=== PATIENT | female | born 2005 | race Caucasian/White ===

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

== ENCOUNTER 2024-10-20 12:09 | Emergency (ER) | payer MEDICARE, SELFPAY ==
[2024-10-20 13:01] VITALS: BP 126/85; PULSE 80; RESP 18; TEMP 36.5; O2SAT 99; BMI 36.9
--- NOTE | 2024-10-20 13:05 | EXP.UTC ---
Discharge Plan Disposition Patient Disposition: Home, Self-Care Condition: Good Prescriptions Prescriptions: New oseltamivir [Tamiflu] 75 mg capsule 75 mg PO BID 5 Days Qty: 10 0RF ondansetron 4 mg Tablet,Disintegrating 4 mg PO Q8H PRN (Reason: Nausea) Qty: 12 0RF azithromycin [Zithromax] 250 mg tablet 250 mg PO UD DOSE PK Qty: 6 0RF Rx Instructions: Take two (2) tablets today, then one (1) tablet days #2 thru #5 Referrals Follow up/Referrals: Arnold Rodríguez DO [Primary Care Provider] - See instructions Activity Restrictions/Add. Instructions Additional Instructions/Restrictions: Drink plenty of fluids. Take tylenol or ibuprofen for pain or fever. Take the medications as directed. Follow up with your regular doctor. GO TO THE ER FOR ANY WORSENING SYMPTOMS Clinical Impressions Clinical Impression: Influenza A, Abdominal pain Instructions Patient Instructions: Influenza, DI for Influenza -- Adult, Ondansetron, Oseltamivir Print Language Print Language: Ethiopian Discharge ED Provider: Lenny Yo [facility] General Stated complaint: vomiting, fever, chills Mode of Arrival: Ambulatory Source of Information: Patient Time Seen by Provider: 10/20/24 13:05 Description of Symptoms (Recalled from Triage Doc. by RN): N/V, CHILLS, FEVER HEENT Symptoms (Recalled from RN notes): Yes Resp Symptoms (Recalled from RN notes): Yes Skin Symptoms (Recalled from RN notes): No MS Symptoms (Recalled from RN notes): No Functional Status (Recalled from RN notes): WNL Related Data Previous Rx's ?Medication ?Instructions ?Recorded azithromycin 250 mg tablet 250 mg PO UD DOSE PK #6 tabs 10/20/24 (Zithromax) ondansetron 4 mg disintegrating 4 mg PO Q8H PRN Nausea #12 tabs 10/20/24 tablet oseltamivir 75 mg capsule (Tamiflu) 75 mg PO BID 5 days #10 caps 10/20/24 Allergies Allergy/AdvReac Type Severity Reaction Status Date / Time No Known Allergies Allergy Verified 05/04/22 09:55 Worker's Comp Is this a Worker's Comp case?: No [facility] Disclaimer: The information contained in this section may have been updated after the patient was seen, as this information can be updated by other users. Social History Smoking Status: Unknown if ever smoked alcohol intake: never substance use type: denies use current occupational status: other Travel in the last 8 weeks: None housing: house current occupational exposures/hazards: No Have you lived/traveled outside [place] in past 30 days?: No Contact w/someone who lives/traveled outside [place] past 30 days?: No Exposure to someone with infectious disease in past 14 days?: No Do you have a fever (greater than 100.4 F or 38 C)?: No Have you tested positive for COVID-19: No Exposed to someone with COVID-19 in past 14 days?: No Do you have a sore throat?: No Do you have a cough?: No Do you have any weakness?: No Do you have any diarrhea?: No Are you experiencing any unusual bleeding?: No Do you have any muscle aches/pain?: No Do you have any abdominal pain?: No Are you experiencing loss of taste or smell?: No ROS Obtained: Yes All systems reviewed & no additional complaints except as documented Constitutional Constitutional: Reports chills and Reports fever(s) Eyes Eyes: Denies eye discharge ENT Ears, Nose, Mouth, and Throat: Reports as per HPI Cardiovascular Cardiovascular: Denies chest pain Respiratory Respiratory: Denies chest congestion and Reports cough Gastrointestinal Gastrointestingal: Reports nausea; Denies abdominal pain, constipation, cramping, diarrhea or vomiting Musculoskeletal Musculoskeletal: Denies arthralgias Integumentary/Breasts Skin/Breast: Denies rash Neurologic Neurologic: Denies paresthesias Physical Exam General General appearance: alert and in no apparent distress Head Head exam: atraumatic, normocephalic and normal inspection Eye Eye exam: Present normal appearance, PERRL and EOMI ENT ENT exam: Present mucous membranes moist and normal external ear exam Expanded ENT Exam TM/Canal exam: Bilateral TM: erythema and bulging Nose exam: Absent sinus tenderness Mouth exam: Present normal external inspection; Absent drooling Teeth exam: Present normal inspection Throat exam: Present tonsillar erythema, tonsillomegaly and tonsillar exudate Neck Neck exam: Present normal inspection, full ROM and trachea midline; Absent tenderness, meningismus or lymphadenopathy Chest Chest inspection: Present normal inspection and symmetric chest wall rise; Absent tenderness Respiratory Respiratory exam: Present normal lung sounds bilaterally; Absent respiratory distress, wheezes, stridor or accessory muscle use Cardiovascular Cardiovascular exam: Present regular rate and normal rhythm; Absent systolic murmur or diastolic murmur Abdominal Exam Abdominal exam: Present soft and hyperactive bowel sounds; Absent distention, tenderness, guarding, rebound, rigidity, psoas sign, obturator sign, heel tap sign, Dumont's sign, Rovsing's sign or tenderness at McBurney's Point Extremities Exam Extremities exam: Present normal inspection and normal capillary refill; Absent calf tenderness Back Exam Back exam: Present normal inspection and full ROM; Absent tenderness, CVA tenderness (R) or CVA tenderness (L) Neurological Exam Neurological exam: Present alert, oriented X3 and CN II-XII intact Psychiatric Psychiatric exam: Present normal affect and normal mood Skin Skin exam: Present warm, dry, intact and normal color Medical Decision Making Medical Records Medical records reviewed: No I reviewed the patient's medical records. Screening: Per USPSTF and CDC recommendations, given the prevalence of disease in our region, it is our hospital?s policy to screen for HIV and viral Hepatitis for all patients aged 18 and over and those with ongoing risk factors. Cooper Inquiry Pt receiving controlled substance: No Vital Signs: 10/20/24 13:01 Temperature 97.7 F Temperature Source Oral Pulse Rate [Left Radial] 80 Respiratory Rate 18 Blood Pressure [Left Arm] 126/85 Blood Pressure Mean [Left Arm] 98 02 Sat by Pulse Oximetry 99 Lab Data Lab results reviewed: Yes I reviewed the patient's lab results. 10/20/24 13:39 10/20/24 13:39
[2024-10-20 13:14] LABS: UTC Influenza A Antigen Positive (Negative); UTC Influenza B Antigen Negative (Negative)
[2024-10-20] MEDS: SODIUM CHLORIDE 0.9% 25ML BAG 25 ML IV (13:34)
[2024-10-20] MEDS: PROMETHAZINE HCL 25MG/ML 1ML VIAL 25 MG IV (13:35)
[2024-10-20] MEDS: 0.9 % SODIUM CHLORIDE 1000ML 1,000 ML 999 ML IV (14:12)
[2024-10-20 14:15] LABS: Chloride 102 mmol/L (98-107)
[2024-10-20 14:16] LABS: Potassium 4.1 mmoL/L (3.5-5.1); Sodium 134 mmol/L (136-145)
[2024-10-20 14:18] LABS: Blood Urea Nitrogen 9 mg/dl (7-17); Creatinine Clearance Estimated 201 mL/min (50-200); Estimated Glomerular Filt Rate 126 ml/min (>60); GFR (African American) 153 ML/MIN (>60)
[2024-10-20 14:19] LABS: Anion Gap 13.1 mEq/L (5-15); Calcium 8.9 mg/dl (8.4-10.2); Carbon Dioxide 23 mmol/L (22.0-30.0); Glucose 123 mg/dl (74-100)
[2024-10-20 14:34] LABS: Hematocrit 35.5 % (37.0-47.0); Hemoglobin 11.5 g/dL (12.2-16.2); Lymphocytes % 9.8 % (10-50); Mean Corpuscular HGB Conc 32.4 g/dL (31.8-35.4); Mean Corpuscular Hemoglobin 27.6 pg (27.0-31.2); Mean Corpuscular Volume 85.3 fl (81-99); Mean Platelet Volume 10.5 fl (7.4-10.4); Neutrophils % 87.9 % (37.0-80.0); Platelet Count 436 K/mm3 (142-424); Red Blood Count 4.16 M/mm3 (4.20-5.40); Red Cell Distribution Width 13.8 % (11.5-17.5); White Blood Count 12.7 K/mm3 (4.8-10.8)
[2024-10-20 14:35] LABS: Basophils % 0.2 % (0.1-2.0); Lymphocytes # 1.3 K/mm3 (0.7-4.5); Monocytes # 0.2 K/mm3 (0.1-1.0); Monocytes % 1.8 % (1.7-9.3); Neutrophils # 11.2 K/mm3 (1.8-7.8)
[2024-10-20 14:36] LABS: MANUAL DIFFERENTIAL MANUAL DIFFERENTIAL (MANUAL DIFF)
[2024-10-20 14:57] LABS: Lymphocytes % 10 % (10-50); Monocytes % 1 % (2-9); Neutrophils % 89 % (42-76); Total Cells Counted 100
[2024-10-20 14:58] LABS: Platelet Estimate Moderate Increase; RBC Morphology Normal
[2024-10-20 15:35] VITALS: BP 126/85; PULSE 80; RESP 18; TEMP 36.5
== END 2024-10-20 15:36 | disposition home or self-care (01) ==
PROVIDERS: Emergency Provider Nurse Practitioner Family; PCP Internal Medicine
DX: J10.1 Influenza due to other identified influenza virus with other respiratory manifestations (principal); R10.9 Unspecified abdominal pain; R50.9 Fever, unspecified; R05.9 Cough, unspecified; R11.0 Nausea
CPT/HCPCS: 80048; 81003; 85007; 85025; 85027; 87804; 96361; 96372; 96374; 99212; G0381; J2550; J7030

== ENCOUNTER 2024-11-17 07:57 | Emergency (ER) | payer MEDICARE, SELFPAY ==
[2024-11-17 07:58] VITALS: BP 150/76; PULSE 92; RESP 17; TEMP 36.8; O2SAT 98; BMI 39.0
--- NOTE | 2024-11-17 08:19 | CT_ITS ---
FINAL REPORT TECHNIQUE: After the administration of oral and intravenous contrast, axial images were obtained through the abdomen and pelvis by computed tomography. The study was performed with techniques to keep radiation dose as low as reasonably achievable, (ALARA). Individual dose reduction techniques using automated exposure control or adjustment of mA and/or kV according to the patient's size were employed. CLINICAL HISTORY: generalized abd pain/TTP, vomiting FINDINGS: Abdomen: The lung bases are clear. The liver parenchyma is homogeneous. The gallbladder is present. The spleen, pancreas, adrenals and kidneys appear unremarkable. The aorta is normal in caliber. There is no free fluid or adenopathy. Pelvis: The appendix is unremarkable. The uterus is present and lies midline. There are small cysts are follicles in both ovaries. The urinary bladder is unremarkable. There is no free fluid or adenopathy. IMPRESSION: No acute intra-abdominal process. Reviewed, Interpreted and Dictated by Samy Patel MD Transcribed by Alyce Hernandez Authenticated and . [facility]
[2024-11-17 08:30] LABS: Basophils % 0.1 % (0.1-2.0); Hematocrit 36.4 % (37.0-47.0); Hemoglobin 11.8 g/dL (12.2-16.2); Lymphocytes # 1.2 K/mm3 (0.7-4.5); Lymphocytes % 8.8 % (10-50); Mean Corpuscular HGB Conc 32.4 g/dL (31.8-35.4); Mean Corpuscular Hemoglobin 27.6 pg (27.0-31.2); Mean Platelet Volume 10.8 fl (7.4-10.4); Monocytes # 0.2 K/mm3 (0.1-1.0); Monocytes % 1.7 % (1.7-9.3); Neutrophils # 11.6 K/mm3 (1.8-7.8); Platelet Count 474 K/mm3 (142-424); Red Blood Count 4.28 M/mm3 (4.20-5.40); White Blood Count 13.1 K/mm3 (4.8-10.8)
[2024-11-17 08:31] LABS: Albumin Level 4.6 g/dl (3.5-5.0); Chloride 102 mmol/L (98-107)
[2024-11-17 08:32] LABS: Potassium 3.7 mmoL/L (3.5-5.1); Sodium 136 mmol/L (136-145)
[2024-11-17] MEDS: ONDANSETRON 4MG/2ML VIAL 4 MG IV (08:33)
[2024-11-17] MEDS: PANTOPRAZOLE 40MG VIAL 40 MG IV (08:33)
[2024-11-17] MEDS: SODIUM CHLORIDE 0.9% 10ML VIAL 10 ML IV (08:33)
[2024-11-17] MEDS: LACTATED RINGERS 1000ML 1,000 ML 999 ML IV (08:33)
[2024-11-17 08:34] LABS: Alanine Aminotransferase 30 U/L (12-78); Anion Gap 13.7 mEq/L (5-15); Aspartate Amino Transferase 29 U/L (14-36); Blood Urea Nitrogen 8 mg/dl (7-17); Carbon Dioxide 24 mmol/L (22.0-30.0); Creatinine Clearance Estimated 255 mL/min (50-200); Estimated Glomerular Filt Rate 156 ml/min (>60); GFR (African American) 188 ML/MIN (>60)
[2024-11-17 08:35] LABS: Albumin/Globulin Ratio 1.5 (1.1-1.8); Alkaline Phosphatase 87 U/L (38-126); Bilirubin,Total 0.4 mg/dl (0.2-1.3); Calcium 9.5 mg/dl (8.4-10.2); Globulin 3.1 g/dL (1.3-3.2); Glucose 157 mg/dl (74-100); Lipase 112 U/L (23-300); Total Protein,Serum 7.7 g/dl (6.3-8.2)
[2024-11-17 08:35] LABS: Coronavirus 19, PCR Not Detected (NotDetected); Influenza A, PCR Not Detected (NotDetected); Influenza B, PCR Not Detected (NotDetected)
[2024-11-17 08:35] LABS: Microscopic, Urine URINE MICROSCOPIC (MICROSCOPIC)
--- NOTE | 2024-11-17 08:41 | HMH.EDGENADL ---
Discharge Plan Disposition Patient Disposition: Home, Self-Care Condition: Good Prescriptions Prescriptions: New pantoprazole 40 mg tablet,delayed release (DR/EC) 40 mg PO DAILY Qty: 30 1RF alum-mag hydroxide-simeth [Maalox Maximum Strength] 400-400-40 mg/5 mL suspension 5 ml PO Q6H PRN (Reason: indigestion) Qty: 3000 0RF ondansetron 4 mg tablet,disintegrating 4 mg PO Q8H PRN (Reason: nausea and vomiting) 4 Days Qty: 12 0RF No Action oseltamivir [Tamiflu] 75 mg capsule 75 mg PO BID 5 Days Qty: 10 0RF ondansetron 4 mg Tablet,Disintegrating 4 mg PO Q8H PRN (Reason: Nausea) Qty: 12 0RF azithromycin [Zithromax] 250 mg tablet 250 mg PO UD DOSE PK Qty: 6 0RF Rx Instructions: Take two (2) tablets today, then one (1) tablet days #2 thru #5 Referrals Follow up/Referrals: Ramses Allen II, MD [Staff Physician] - See instructions Arnold Rodríguez DO [Primary Care Provider] - See instructions Activity Restrictions/Add. Instructions Additional Instructions/Restrictions: You were evaluated in the emergency department today. Please follow-up closely with your primary care provider. I also recommend follow-up with gastroenterology. I have provided you with information for Dr. Allen. supervisor cleaning and annealing your prescriptions at the pharmacy and take them as prescribed. Take Tylenol every 4-6 hours as needed for pain. I recommend avoiding NSAIDs given stomach irritation. Return to the emergency department for new or worsening symptoms Clinical Impressions Clinical Impression: Gastritis, Chronic anemia Stand Alone Forms Stand Alone Forms: Work/School Release Instructions Patient Instructions: DI for Gastritis, DI for Acute Abdominal Pain, DI for Vomiting -- Adult Print Language Print Language: [place] Discharge ED Provider: Adrianna Hill General Adult HPI General Chief complaint: Abdominal Pain Stated complaint: vomiting Time Seen by Provider: 11/17/24 08:04 Mode of Arrival: Family Vehicle Source of Information: Patient Limitations: No Limitations Description of Symptoms (Recalled from ER Triage Doc. by RN): Pt c/o LUQ ABD pain with persistant n/v for weeks. Mother reports pt had the flu in late Sep and has been vomiting brown/green emesis intermittently since. States it has been worse in the mornings. Reports LMP 1 wk ago. Has a hx of hole in stomach but did not require surgery to fix, that it healed on it own. Denies any fever. History of Present Illness HPI narrative: This patient is a 19-year-old female with a history of hypoxic ischemic encephalopathy, cerebral palsy, cognitive impairment, PNES, hypertension, and reflux presenting to the Emergency Department for evaluation with concern for generalized abdominal pain, nausea, and vomiting. According to the patient's parents, she was born with extensive medical problems and Having vomiting as an of bile. They state that her emesis was always dark black. They note that she had a history of having a hole in her stomach but did not have surgery to fix it, it healed on its own. She was on a lot of medications, including for seizures as well as for her stomach, but she is not on any medications as of late. She was evaluated in [facility] 10/20/2024 and was diagnosed with the flu. At that time, she was having abdominal pain and vomiting. Family notes that he got better, but yesterday the vomiting started again and has been persistent overnight, prompting ED evaluation. They state that her emesis is typically very dark bile. She has had no fevers, changes in bowel movements, or urinary symptoms. Patient states that she is having abdominal pain and notes it is all over, mostly on both sides of her abdomen. No other issues noted at this time. Related Data Previous Rx's ?Medication ?Instructions ?Recorded azithromycin 250 mg tablet 250 mg PO UD DOSE PK #6 tabs 10/20/24 (Zithromax) ondansetron 4 mg disintegrating 4 mg PO Q8H PRN Nausea #12 tabs 10/20/24 tablet oseltamivir 75 mg capsule (Tamiflu) 75 mg PO BID 5 days #10 caps 10/20/24 aluminum-mag hydroxide-simethicone 5 ml PO Q6H PRN indigestion #3,000 11/17/24 400 mg-400 mg-40 mg/5 mL oral susp mL (Maalox Maximum Strength) ondansetron 4 mg disintegrating 4 mg PO Q8H PRN nausea and 11/17/24 tablet vomiting 4 days #12 tabs pantoprazole 40 mg tablet,delayed 40 mg PO DAILY #30 tabs 11/17/24 release Allergies Allergy/AdvReac Type Severity Reaction Status Date / Time No Known Allergies Allergy Verified 05/04/22 09:55 [facility] Disclaimer: The information contained in this section may have been updated after the patient was seen, as this information can be updated by other users. Social History Smoking Status: Never smoker alcohol intake: never substance use type: denies use current occupational status: other Travel in the last 8 weeks: None housing: house current occupational exposures/hazards: No Have you lived/traveled outside [place] in past 30 days?: No Contact w/someone who lives/traveled outside [place] past 30 days?: No Exposure to someone with infectious disease in past 14 days?: No Do you have a fever (greater than 100.4 F or 38 C)?: No Have you tested positive for COVID-19: No Exposed to someone with COVID-19 in past 14 days?: No Do you have a sore throat?: No Do you have a cough?: No Do you have any weakness?: No Do you have any diarrhea?: No Are you experiencing any unusual bleeding?: No Do you have any muscle aches/pain?: No Do you have any abdominal pain?: No Are you experiencing loss of taste or smell?: No Other Medical History Have you received the Flu Vaccine for this season: No Have you received the Pneumonia Vaccine: No ROS Obtained: Yes All systems reviewed & no additional complaints except as documented Physical Exam General General appearance: alert and in no apparent distress Head Head exam: atraumatic and normocephalic Eye Eye exam: Present normal appearance, PERRL and EOMI ENT ENT exam: Present normal exam, normal oropharynx, mucous membranes moist and normal external ear exam Neck Neck exam: Present normal inspection, full ROM and trachea midline; Absent tenderness Chest Chest inspection: Present normal inspection and symmetric chest wall rise; Absent tenderness Respiratory Respiratory exam: Present normal lung sounds bilaterally; Absent respiratory distress, wheezes, stridor or accessory muscle use Cardiovascular Cardiovascular exam: Present regular rate and normal rhythm Abdominal Exam Abdominal exam: Present soft and tenderness (Generalized); Absent distention, guarding, rebound or rigidity Extremities Exam Extremities exam: Present normal inspection, full ROM and normal capillary refill; Absent tenderness or edema Back Exam Back exam: Present normal inspection and full ROM; Absent tenderness Neurological Exam Neurological exam: Present alert, oriented X3, CN II-XII intact and normal gait; Absent motor sensory deficit Psychiatric Psychiatric exam: Present normal affect and normal mood Skin Skin exam: Present warm, dry and pallor Medical Decision Making Medical Records Medical records reviewed: Yes I reviewed the patient's medical records. Screening: Per USPSTF and CDC recommendations, given the prevalence of disease in our region, it is our hospital?s policy to screen for HIV and viral Hepatitis for all patients aged 18 and over and those with ongoing risk factors. Cooper Inquiry Pt receiving controlled substance: No Vital Signs: 11/17/24 07:58 11/17/24 09:00 11/17/24 11:28 Temperature 98.2 F 98.4 F Temperature Source Oral Pulse Rate 82 68 Pulse Rate [Right] 92 H Respiratory Rate 17 18 Blood Pressure 122/71 134/77 Blood Pressure [Right Arm] 150/76 H Blood Pressure Mean [Right Arm] 100 Blood Pressure Source [Right Arm] Automatic Cuff 02 Sat by Pulse Oximetry 98 99 Oxygen Delivery Method Room Air Room Air Lab Data Lab results reviewed: Yes I reviewed the patient's lab results. Lab Results 11/17/24 08:09: WBC 13.1 H, RBC 4.28, Hgb 11.8 L, Hct 36.4 L, MCV 85.0, MCH 27.6, MCHC 32.4, RDW 14.0, Plt Count 474 H, MPV 10.8 H, Neut % (Auto) 89.0 H, Lymph % (Auto) 8.8 L, Hendry % (Auto) 1.7, Eos % (Auto) 0.0 L, Baso % (Auto) 0.1, Neut # (Auto) 11.6 H, Lymph # (Auto) 1.2, Hendry # (Auto) 0.2, Eos # (Auto) 0.0, Baso # (Auto) 0.0, Sodium 136, Potassium 3.7, Chloride 102, Carbon Dioxide 24, Anion Gap 13.7, BUN 8, Creatinine 0.50 L, Estimated Creat Clear 255, Estimated GFR 156, Est GFR ( Amer) 188, Glucose 157 H, Calcium 9.5, Total Bilirubin 0.4, AST 29, ALT 30, Alkaline Phosphatase 87, Total Protein 7.7, Albumin 4.6, Globulin 3.1, Albumin/Globulin Ratio 1.5, Lipase 112, Serum HCG, Qual Negative, HCV Ab NIRAV w/Rflx PCR Qn Negative, HIV Ag/Ab Combo Qual Negative 11/17/24 08:30: SARS-CoV-2 (PCR) Not detected, Influenza A Untype (PCR) Not detected, Influenza Type B (PCR) Not detected 11/17/24 08:33: Urine Color Yellow, Urine Appearance Cloudy, Urine pH >= 9.0 H, Ur Specific Carter 1.020, Urine Protein Trace, Urine Glucose (UA) Negative, Urine Ketones 1+, Urine Blood Negative, Urine Nitrate Negative, Urine Bilirubin Negative, Urine Urobilinogen 1.0, Ur Leukocyte Esterase Trace, Urine RBC None, Urine WBC 3-5, Ur Squamous Epith Cells 10-20, Amorphous Sediment 2+, Urine Bacteria 2+ 11/17/24 08:43: Lactate 1.9 11/17/24 08:09 11/17/24 08:09 Orders (Tests/Meds): ED MEDICATIONS Discontinued Medications Generic Name Dose Route Start Last Admin Trade Name Freq PRN Reason Stop Dose Admin Lactated Ringer's 1,000 mls @ 999 mls/hr 11/17/24 08:19 11/17/24 08:33 Lactated Ringer's 1000 Ml Bag IV 11/17/24 09:19 999 mls/hr .Q1H1M ONE Administration Iopamidol 75 ml 11/17/24 09:58 11/17/24 09:59 Iopamidol-370 (76%);100ml Bottle IV 11/17/24 09:59 75 ml ONCE ONE Administration Ondansetron HCl 4 mg 11/17/24 08:19 11/17/24 08:33 Ondansetron 4mg/2ml Vial IV 11/17/24 08:20 4 mg ONCE ONE Administration Pantoprazole Sodium 40 mg 11/17/24 08:19 11/17/24 08:33 Pantoprazole 40mg Vial IV 11/17/24 08:20 40 mg ONCE ONE Administration Sodium Chloride 10 ml 11/17/24 08:19 11/17/24 08:33 Sodium Chloride 0.9% 10ml Vial IV 12/17/24 08:18 10 ml NEEDED PRN Administration dilute protonix Sodium Chloride 10 ml 11/17/24 09:58 11/17/24 09:58 Sodium Chloride 0.9% 10ml Syr (Rad Only) IV 11/17/24 09:59 10 ml ONCE ONE Administration ORDERS Category Date Time Status CT abdomen pelvis w con Stat Cat Scan 11/17/24 08:19 Completed Complete Blood Count Auto Diff Stat Lab 11/17/24 08:09 Completed Comprehensive Metabolic Panel Stat Lab 11/17/24 08:09 Completed HIV Combo Stat Lab 11/17/24 08:09 Completed Hepatitis C Ab Qual. W/ RFX Stat Lab 11/17/24 08:09 Completed Lactic Acid Stat Lab 11/17/24 08:43 Completed Lipase Stat Lab 11/17/24 08:09 Completed Rapid PCR Covid and Flu A/B Stat Lab 11/17/24 08:30 Completed Serum [HCG Qualitative, Serum] Stat Lab 11/17/24 08:09 Completed UA [Urinalysis and Microscopic] Stat Lab 11/17/24 08:33 Completed Urine Culture Stat Micro 11/17/24 08:33 Received Medical Decision Narrative: In summary, this patient is a 19-year-old female presenting to the Emergency Department for evaluation of generalized abdominal pain, nausea, and vomiting. Differential diagnoses considered include but are not limited to gastroenteritis, gastritis, peptic ulcer disease, pancreatitis, cholecystitis, appendicitis. Ruling out the most morbid conditions drove assessment. It should be noted patient's history includes hypoxic ischemic encephalopathy, cerebral palsy, reflux which may or may not be at goal therapy. This complicates all aspects of care by increasing patient's risk for morbidity. I reviewed patient's past medical records and noted previous evaluations at by neurology and diagnosis of PNES as well as her prior history of reflux. On my assessment, patient is pale. She has generalized abdominal tenderness but no rebound or guarding. Vitals are reassuring on cardiac telemetry. Workup included CBC, CMP, lipase, test, urinalysis, CT abdomen pelvis with IV contrast. She is given a bolus of IV fluids as well as IV pantoprazole and Zofran for symptomatic improvement. I independently interpreted CT scan prior to the radiologist read and noted no obvious acute surgical pathology such as appendicitis or cholecystitis. Please see their read for final interpretation. They noted that the scan is normal. Labs were obtained that demonstrated mild leukocytosis which is nonspecific and could be leukemoid reaction from vomiting. Chemistry is reassuring with no significant transaminitis or elevation in lipase. Urine is contaminated with squamous cells and is not overtly concerning for infection. Culture was sent and is pending.. On reassessment, patient had great improvement after administration of event as above. She is feeling a lot better and is tolerating oral intake. Vitals are normal on cardiac telemetry and abdominal exam is benign. Given this, I feel the patient is appropriate for discharge home with diagnosis of likely gastritis. She was given prescription for pantoprazole, Maalox, and Zofran as well as instructions for close follow-up with primary care. She was discharged after all questions were answered. Critical Care Critical Care Time Critical Care Time: No
[2024-11-17 09:00] VITALS: BP 122/71; PULSE 82; O2SAT 99
[2024-11-17 09:19] LABS: Lactic Acid 1.9 mmol/L (0.7-2.1)
[2024-11-17 09:25] LABS: Appearance,Urine CLOUDY (Clear); Bilirubin,Urine Negative (Negative); Blood, Urine Negative (Negative); Color,Urine YELLOW (Yellow); Glucose,Urine (UA) Negative (Negative); Ketones,Urine 1+ (Negative); Leukocyte Esterase,Urine TRACE (Negative); Nitrate,Urine Negative (Negative); Protein,Urine TRACE (Negative)
[2024-11-17 09:28] LABS: PH,Urine >= 9.0 (5.0-8.5)
[2024-11-17 09:32] LABS: HIV Combo NEGATIVE (Negative)
[2024-11-17 09:40] LABS: Hepatitis C Ab Qual. W/ RFX NEGATIVE (Negative)
[2024-11-17 09:43] LABS: HCG Qualitative, Serum Negative (Negative)
[2024-11-17 09:53] LABS: Amorphous Sediment,Urine 2+ /lpf; Bacteria,Urine 2+ /lpf
[2024-11-17] MEDS: SODIUM CHLORIDE 0.9% 10ML SYR (RAD ONLY) 10 ML IV (09:58)
[2024-11-17] MEDS: IOPAMIDOL-370 (76%);100ML BOTTLE 75 ML IV (09:59)
--- NOTE | 2024-11-17 11:03 | PC.NURSE ---
gave patient drink for po challenge
[2024-11-17 11:28] VITALS: BP 134/77; PULSE 68; RESP 18; TEMP 36.9; O2SAT 97
== END 2024-11-17 11:29 | disposition home or self-care (01) ==
PROVIDERS: Emergency Provider Emergency Medicine; PCP Internal Medicine
DX: D64.9 Anemia, unspecified (principal); K29.70 Gastritis, unspecified, without bleeding; R10.12 Left upper quadrant pain; R11.2 Nausea with vomiting, unspecified
CPT/HCPCS: 74177; 80053; 81001; 83605; 83690; 84703; 85025; 86803; 87086; 87389; 87636; 96361; 96374; 96375; 99285; J2405; J7120; Q9967

== ENCOUNTER 2024-11-22 13:55 | Emergency (ER) | payer MEDICARE, SELFPAY ==
[2024-11-22 13:56] VITALS: BP 141/84; PULSE 79; RESP 18; TEMP 37; O2SAT 99; BMI 32.4
--- NOTE | 2024-11-22 14:03 | PC.NURSE ---
DR DICK AT BEDSIDE
[2024-11-22 14:10] VITALS: BMI 32.4
[2024-11-22 14:11] VITALS: BP 141/84; PULSE 89; O2SAT 97
--- NOTE | 2024-11-22 14:20 | PC.NURSE ---
DR DICK AT BEDSIDE
[2024-11-22 14:21] LABS: Basophils % 0.4 % (0.1-2.0); Eosinophils # 0.1 K/mm3 (0.0-0.4); Eosinophils % 0.6 % (0.1-12.0); Hematocrit 33.7 % (37.0-47.0); Hemoglobin 11.2 g/dL (12.2-16.2); Lymphocytes # 2.1 K/mm3 (0.7-4.5); Lymphocytes % 19.4 % (10-50); Mean Corpuscular HGB Conc 33.2 g/dL (31.8-35.4); Mean Corpuscular Volume 84.3 fl (81-99); Mean Platelet Volume 10.3 fl (7.4-10.4); Monocytes # 0.7 K/mm3 (0.1-1.0); Monocytes % 6.7 % (1.7-9.3); Neutrophils # 7.9 K/mm3 (1.8-7.8); Neutrophils % 72.6 % (37.0-80.0); Platelet Count 462 K/mm3 (142-424); Red Cell Distribution Width 13.9 % (11.5-17.5); White Blood Count 10.9 K/mm3 (4.8-10.8)
[2024-11-22] MEDS: PROMETHAZINE HCL 25MG/ML 1ML VIAL 12.5 MG IV (14:28)
[2024-11-22] MEDS: SODIUM CHLORIDE 0.9% 25ML BAG 25 ML IV (14:28)
[2024-11-22 14:29] LABS: Albumin Level 4.5 g/dl (3.5-5.0); Chloride 99 mmol/L (98-107)
[2024-11-22 14:30] VITALS: BP 130/81; PULSE 74; O2SAT 98
[2024-11-22 14:30] LABS: Potassium 3.6 mmoL/L (3.5-5.1); Sodium 138 mmol/L (136-145)
[2024-11-22 14:32] LABS: Alanine Aminotransferase 20 U/L (12-78); Anion Gap 15.6 mEq/L (5-15); Aspartate Amino Transferase 22 U/L (14-36); Blood Urea Nitrogen 8 mg/dl (7-17); Carbon Dioxide 27 mmol/L (22.0-30.0); Creatinine Clearance Estimated 169 mL/min (50-200); Estimated Glomerular Filt Rate 106 ml/min (>60); GFR (African American) 128 ML/MIN (>60)
[2024-11-22 14:33] LABS: Albumin/Globulin Ratio 1.6 (1.1-1.8); Alkaline Phosphatase 73 U/L (38-126); Bilirubin,Total 0.5 mg/dl (0.2-1.3); Globulin 2.9 g/dL (1.3-3.2); Glucose 92 mg/dl (74-100); Lipase 146 U/L (23-300); Total Protein,Serum 7.4 g/dl (6.3-8.2)
--- NOTE | 2024-11-22 14:38 | ED_ITS ---
Discharge Plan Disposition Patient Disposition: Home, Self-Care Chief Complaint: Abdominal Pain Prescriptions Prescriptions: No Action pantoprazole 40 mg tablet,delayed release (DR/EC) 40 mg PO DAILY Qty: 30 1RF alum-mag hydroxide-simeth [Maalox Maximum Strength] 400-400-40 mg/5 mL suspension 5 ml PO Q6H PRN (Reason: indigestion) Qty: 3000 0RF ondansetron 4 mg tablet,disintegrating 4 mg PO Q8H PRN (Reason: nausea and vomiting) 4 Days Qty: 12 0RF oseltamivir [Tamiflu] 75 mg capsule 75 mg PO BID 5 Days Qty: 10 0RF ondansetron 4 mg Tablet,Disintegrating 4 mg PO Q8H PRN (Reason: Nausea) Qty: 12 0RF azithromycin [Zithromax] 250 mg tablet 250 mg PO UD DOSE PK Qty: 6 0RF Rx Instructions: Take two (2) tablets today, then one (1) tablet days #2 thru #5 Referrals Follow up/Referrals: Arnold Rodríguez DO [Primary Care Provider] - See instructions Activity Restrictions/Add. Instructions Additional Instructions/Restrictions: Call your family doctor to establish care for this visit to the emergency department and schedule follow-up within 48 hours to ensure improvement. If you have any worsening of your condition or any other concerning signs or symptoms, return to the emergency department or your primary care doctor for further evaluation. Take Protonix every night. 40 mg. Oral antacid solution can be used and you can rotate this with Pepto-Bismol in order to help with symptoms. If you are not taking all of these, follow-up with family medicine for intermittent lab draws to prevent patient from having elevated calcium levels. If taking all of these oral medications, I recommend starting 17 g (1 capful) of MiraLAX (polyethylene glycol generic) daily to prevent severe constipation. Clinical Impressions Clinical Impression: Peptic ulcer disease Instructions Patient Instructions: DI for Acute Abdominal Pain Print Language Print Language: Tamazight Discharge ED Provider: Syed Christensen General Adult HPI General Chief complaint: Abdominal Pain Stated complaint: stomach pain Time Seen by Provider: 11/22/24 13:57 Mode of Arrival: Family Vehicle Source of Information: Patient, Parent(s) and Medical Record Limitations: No Limitations Description of Symptoms (Recalled from ER Triage Doc. by RN): Pt brougtht to ER by family d/t concerns for persistant dry heaves and abd pain. States since she had flu A on 10/20/24, pt has had persistant nause & vomiting with abd pain intermittently. She was seen in ER on 11/[address] a [address] CT of A/P. She was d/c on protonix, zofran, and Maaloxx. Pt is taking theses meds but still having persistant n/v and abd pain. History of Present Illness HPI narrative: Please note that above description of symptoms, in this electronic medical record under categorization of recalled from ER triage doctor by RN are reflective of an initial nursing assessment, however, is not reflective of my full history and physical exam that was personally taken and clarified. Consequentially, this preceding description of symptoms, which may include the patient's categorized chief complaint in the EMR, do not reflect my personal clinical impression, and the ultimate description of history of present illness and patient stated complaints should be deferred to this section of the note. Unless stated otherwise or congruent with this section of the note, additional signs, symptoms, or incongruence should be interpreted as inaccurate with my clinical impression. Related Data Previous Rx's ?Medication ?Instructions ?Recorded azithromycin 250 mg tablet 250 mg PO UD DOSE PK #6 tabs 10/20/24 (Zithromax) ondansetron 4 mg disintegrating 4 mg PO Q8H PRN Nausea #12 tabs 10/20/24 tablet oseltamivir 75 mg capsule (Tamiflu) 75 mg PO BID 5 days #10 caps 10/20/24 aluminum-mag hydroxide-simethicone 5 ml PO Q6H PRN indigestion #3,000 11/17/24 400 mg-400 mg-40 mg/5 mL oral susp mL (Maalox Maximum Strength) ondansetron 4 mg disintegrating 4 mg PO Q8H PRN nausea and 11/17/24 tablet vomiting 4 days #12 tabs pantoprazole 40 mg tablet,delayed 40 mg PO DAILY #30 tabs 11/17/24 release Allergies Allergy/AdvReac Type Severity Reaction Status Date / Time No Known Allergies Allergy Verified 05/04/22 09:55 [facility] Disclaimer: The information contained in this section may have been updated after the patient was seen, as this information can be updated by other users. Social History Smoking Status: Never smoker alcohol intake: never substance use type: denies use current occupational status: other Travel in the last 8 weeks: None housing: house current occupational exposures/hazards: No Have you lived/traveled outside US in past 30 days?: No Contact w/someone who lives/traveled outside US past 30 days?: No Exposure to someone with infectious disease in past 14 days?: No Do you have a fever (greater than 100.4 F or 38 C)?: No Have you tested positive for COVID-19: No Exposed to someone with COVID-19 in past 14 days?: No Do you have a sore throat?: No Do you have a cough?: No Do you have any weakness?: No Do you have any diarrhea?: No Are you experiencing any unusual bleeding?: No Do you have any muscle aches/pain?: No Do you have any abdominal pain?: Yes Are you experiencing loss of taste or smell?: No Other Medical History Have you received the Flu Vaccine for this season: No Have you received the Pneumonia Vaccine: No ROS Obtained: Yes All systems reviewed & no additional complaints except as documented Physical Exam General General appearance: alert Head Head exam: atraumatic and normocephalic Eye Eye exam: Present normal appearance, PERRL and EOMI ENT ENT exam: Present mucous membranes dry Neck Neck exam: Present normal inspection, full ROM and trachea midline Respiratory Respiratory exam: Absent respiratory distress, wheezes, stridor, accessory muscle use or prolonged expiratory phase Cardiovascular Cardiovascular exam: Present other (Pulses equal symmetric in upper and lower extremities) Abdominal Exam Abdominal exam: Present soft and tenderness; Absent distention, guarding, rebound, rigidity or pulsatile mass Abdominal tenderness: Present epigastrium and mild Extremities Exam Extremities exam: Absent edema Neurological Exam Neurological exam: Present alert, oriented X3 and CN II-XII intact; Absent motor sensory deficit Skin Skin exam: Present warm and dry; Absent diaphoresis or erythema Medical Decision Making Medical Records Medical records reviewed: Yes I reviewed the patient's medical records. Screening: Per USPSTF and CDC recommendations, given the prevalence of disease in our region, it is our hospital?s policy to screen for HIV and viral Hepatitis for all patients aged 18 and over and those with ongoing risk factors. Cooper Inquiry Pt receiving controlled substance: No Cooper was queried for this patient: No Vital Signs: 11/22/24 13:56 11/22/24 14:11 Temperature 98.6 F Temperature Source Oral Pulse Rate 89 Pulse Rate [Right] 79 Respiratory Rate 18 Blood Pressure 141/84 H Blood Pressure [Left Arm] 141/84 H Blood Pressure Mean [Left Arm] 103 Blood Pressure Source [Left Arm] Automatic Cuff 02 Sat by Pulse Oximetry 99 97 Oxygen Delivery Method Room Air Lab Data Lab Results 11/22/24 14:18: WBC 10.9 H, RBC 4.00 L, Hgb 11.2 L, Hct 33.7 L, MCV 84.3, MCH 28.0, MCHC 33.2, RDW 13.9, Plt Count 462 H, MPV 10.3, Neut % (Auto) 72.6, Lymph % (Auto) 19.4, [place] % (Auto) 6.7, Eos % (Auto) 0.6, Baso % (Auto) 0.4, Neut # (Auto) 7.9 H, Lymph # (Auto) 2.1, [place] # (Auto) 0.7, Eos # (Auto) 0.1, Baso # (Auto) 0.0, PT 11.0, INR 1.00, APTT 25.2, Sodium 138, Potassium 3.6, Chloride 99, Carbon Dioxide 27, Anion Gap 15.6 H, BUN 8, Creatinine 0.70, Estimated Creat Clear 169, Estimated GFR 106, Est GFR ( Amer) 128, Glucose 92, Calcium 9.0, Magnesium 2.0, Total Bilirubin 0.5, AST 22, ALT 20, Alkaline Phosphatase 73, Total Protein 7.4, Albumin 4.5, Globulin 2.9, Albumin/Globulin Ratio 1.6, Lipase 146 11/22/24 14:18 11/22/24 14:18 Orders (Tests/Meds): ED MEDICATIONS Discontinued Medications Generic Name Dose Route Start Last Admin Trade Name Freq PRN Reason Stop Dose Admin Promethazine HCl 12.5 mg 11/22/24 14:06 11/22/24 14:28 Promethazine Hcl 25mg/Ml 1ml Vial IV 11/22/24 14:07 12.5 mg ONCE ONE Administration Sodium Chloride 25 ml 11/22/24 14:06 11/22/24 14:28 Sodium Chloride 0.9% 25ml Bag IV 11/22/24 14:07 25 ml ONCE ONE Administration ORDERS Category Date Time Status POCUS Point of Care (ER Only) Stat Exams 11/22/24 14:08 Ordered Acetone, Serum (Rapid) Stat Lab 11/22/24 14:18 Results Complete Blood Count Auto Diff Stat Lab 11/22/24 14:18 Completed Comprehensive Metabolic Panel Stat Lab 11/22/24 14:18 Results Lipase Stat Lab 11/22/24 14:18 Results Magnesium Stat Lab 11/22/24 14:18 Results PT INR [Prothrombin Time INR] Stat Lab 11/22/24 14:18 Completed PTT [Activated Partial Thrombo Time] Stat Lab 11/22/24 14:18 Completed Urinalysis and Microscopic Stat Lab 11/22/24 14:08 Ordered Medical Decision Narrative: 19-year-old female presenting with abdominal pain. She has chronic abdominal pain, vomiting. She had a gastric ulcer in the past, this has since healed in the remote past and the symptoms are similar to what she had previously. Patient states that pain is absent when not eating, near immediate after putting anything in her mouth and trying to take p.o. intake. Burning, epigastric, associated with vomiting. Does not radiate. Patient was seen recently, started on Protonix and given GI outpatient follow-up. History was obtained via conversation with mother, father, patient. On arrival, patient hemodynamically stable, alert, oriented x4, appropriate, GCS 15, moving all extremities spontaneously, pupils equal and reactive to light. Full physical exam performed and significant for well-appearing female no acute distress. She has mildly tender abdomen in the epigastrium and right upper quadrant. No rebound, rigidity, or guarding. No flank tenderness or overlying skin changes. Differential includes gastritis, PUD, cholecystitis, pancreatitis, , among others. Patient placed on continuous cardiac monitoring and continuous pulse ox with initial blood pressure 141/84, heart rate of 79, saturation 99% on room air.Patient was given Phenergan IV for symptomatic management and correction of underlying abnormalities. Workup independently interpreted and significant for leukocytosis which is improving from previously just a couple days prior. Nonactionable CBC or chemistry, negative lipase. Negative urine on the . On independent interpretation of imaging, patient has no acute right upper quadrant findings on [id number] ultrasound. See radiology read for full review of final results. CT abdomen and pelvis was considered, but this is consistent with peptic ulcer disease, patient has appropriate treatment and follow-up scheduled. Negative workup, nonactionable exam, deemed unnecessary at this time. On reevaluation, patient resting comfortably, able to tolerate p.o. intake, but still feeling nauseated. Given patient presentation, workup, history, this most likely represents peptic ulcer. Because patient at baseline without signs or symptoms of clinical decompensation, deemed appropriate for discharge. Results were relayed to patientand family who voiced understanding and were agreeable to outpatient management and follow up. I discussed my clinical impression with patient and answered all questions. At this time, the evidence for any other entities in the differential is insufficient to warrant any further testing or ED observation. This was explained as well. Advisory was given that persistent or worsening symptoms require further evaluation. I confirmed the understanding of this discussion. Pediatric Physical Therapy Assistant disclaimer Much of this encounter note is an electronic financial services auditor spoken language to printed text. Electronic financial services auditor of the spoken language may permit errors. Although I have reviewed the note, some errors may still exist. Procedures Limited Ultrasound Indication:: Limited RUQ ultrasound Indication: Abdominal pain Identified structures: -Gallbladder -Gallbladder wall -Common bile duct -Liver Findings: Sonographic Dumont sign: Absent Gallstones: Absent Sludge: Absent Pericholecystic fluid: Absent Maximal GB wall thickness (mm) (normal is </= 3mm): Normal Common bile duct width (mm) (normal is </= 6mm): Normal Gallbladder width (cm) (normal is < 4cm): Normal Gallbladder length (cm) (normal is < 10cm): Normal Impression: Normal gallbladder, no right upper quadrant findings Images were saved to permanent archive The study was technically adequate CPT 82787-94 This study was performed by me, and I personally interpreted all images/videos. Based on my clinical judgement, these images were adequate and did not necessitate further imaging. Critical Care Critical Care Time Critical Care Time: No
[2024-11-22 14:44] LABS: Activated Partial Thrombo Time 25.2 seconds (22.8-30.6)
[2024-11-22 15:00] VITALS: BP 138/87; PULSE 72; O2SAT 100
[2024-11-22 15:05] VITALS: BP 138/87; PULSE 80; RESP 18; TEMP 37; O2SAT 99
[2024-11-22 15:24] LABS: Acetone, Serum (Rapid) None Detected (None Detect)
== END 2024-11-22 15:10 | disposition home or self-care (01) ==
PROVIDERS: Emergency Provider Emergency Medicine; PCP Internal Medicine
DX: K27.9 Peptic ulcer, site unspecified, unspecified as acute or chronic, without hemorrhage or perforation (principal); R10.11 Right upper quadrant pain; R10.13 Epigastric pain; R11.2 Nausea with vomiting, unspecified
CPT/HCPCS: 80053; 82009; 83690; 83735; 85025; 85610; 85730; 96374; 99283; J2550

== ENCOUNTER 2024-12-07 15:55 | Emergency (ER) | payer MEDICARE, SELFPAY ==
[2024-12-07 15:56] VITALS: BP 145/102; PULSE 88; RESP 16; TEMP 36.4; O2SAT 98; BMI 38.7
[2024-12-07 16:08] VITALS: BP 133/85; PULSE 84; O2SAT 99
--- NOTE | 2024-12-07 16:18 | ED_ITS ---
<Statement entered by Moses Carnes MD - 12/07/24 23:55> I was consulted by the VENUS, and we discussed the complexity of the problems being addressed. I approved the treatment and management plan for this patient's care in the emergency department, thus performing a substantive portion of the medical decision making. Moses Carnes MD Discharge Plan Disposition Patient Disposition: Home, Self-Care Condition: Good Prescriptions Prescriptions: New dicyclomine 10 mg capsule 10 mg PO QID PRN (Reason: abdominal pain) Qty: 20 0RF buspirone 5 mg tablet 5 mg PO ONCE Qty: 30 0RF No Action pantoprazole 40 mg tablet,delayed release (DR/EC) 40 mg PO DAILY Qty: 30 1RF alum-mag hydroxide-simeth [Maalox Maximum Strength] 400-400-40 mg/5 mL suspension 5 ml PO Q6H PRN (Reason: indigestion) Qty: 3000 0RF ondansetron 4 mg Tablet,Disintegrating 4 mg PO Q8H PRN (Reason: Nausea) Qty: 12 0RF Referrals Follow up/Referrals: Arnold Rodríguez DO [Primary Care Provider] - See instructions Activity Restrictions/Add. Instructions Additional Instructions/Restrictions: As we discussed please keep your appointment with Dr. Allen. If you have continued new or worsening signs or symptoms follow-up with your PCP or return to the ER as needed. I have sent both BuSpar or bisoprolol fumarate to take at bedtime and Bentyl or dicyclomine to take up to 4 times a day for her abdominal discomfort. Clinical Impressions Clinical Impression: Abdominal pain Qualifiers: Abdominal location: generalized Qualified Code(s): R10.84 - Generalized abdominal pain Nausea & vomiting Qualifiers: Vomiting type: unspecified Qualified Code(s): R11.2 - Nausea with vomiting, unspecified Instructions Patient Instructions: DI for Acute Abdominal Pain Print Language Print Language: Malaysian Discharge ED Provider: Moses Carnes General Adult HPI General Chief complaint: Abdominal Pain Stated complaint: abd pain dry heaving Time Seen by Provider: 12/07/24 16:00 Mode of Arrival: Ambulatory Source of Information: Patient and Parent(s) Limitations: No Limitations Description of Symptoms (Recalled from ER Triage Doc. by RN): Pt presents today with parents. Parents states we have been here 2-3 times now and requesting admission. Pt continues to have dry heaving and abdominal pain. History of Present Illness HPI narrative: Patient presents for evaluation of abdominal pain. Patient has a past medical history of cerebral palsy with an unknown GI complaint when she was an infant that required management at the [facility], and since [id number] has had abdominal pain along with vomiting and has been evaluated and seen in the ER several times for this. She has had multiple laboratory investigations multiple radiographic investigations and an ultrasound all unrevealing as to her cause. Multiple attempts have been made at interventions including disimpaction antiemetics and patient has been referred to gastroenterology but she has yet to been seen by them. Patient has no improvement and continues to have abdominal pain decreased oral intake subjectively and vomiting with oral intake. She is only having vomiting when she eats and is actually having food avoidance for fear of increasing her pain and vomiting. She denies however fever chills hemoptysis hematochezia melena hematemesis hematuria. She is reporting normal bowel movements now. Related Data Previous Rx's ?Medication ?Instructions ?Recorded ondansetron 4 mg disintegrating 4 mg PO Q8H PRN Nausea #12 tabs 10/20/24 tablet aluminum-mag hydroxide-simethicone 5 ml PO Q6H PRN indigestion #3,000 11/17/24 400 mg-400 mg-40 mg/5 mL oral susp mL (Maalox Maximum Strength) pantoprazole 40 mg tablet,delayed 40 mg PO DAILY #30 tabs 11/17/24 release buspirone 5 mg tablet 5 mg PO ONCE #30 tabs 12/07/24 dicyclomine 10 mg capsule 10 mg PO QID PRN abdominal pain 12/07/24 #20 caps Allergies Allergy/AdvReac Type Severity Reaction Status Date / Time No Known Allergies Allergy Verified 05/04/22 09:55 [facility] Disclaimer: The information contained in this section may have been updated after the patient was seen, as this information can be updated by other users. Social History Smoking Status: Never smoker alcohol intake: never substance use type: denies use current occupational status: other Travel in the last 8 weeks: None housing: house current occupational exposures/hazards: No Have you lived/traveled outside US in past 30 days?: No Contact w/someone who lives/traveled outside US past 30 days?: No Exposure to someone with infectious disease in past 14 days?: No Do you have a fever (greater than 100.4 F or 38 C)?: No Have you tested positive for COVID-19: No Exposed to someone with COVID-19 in past 14 days?: No Do you have a sore throat?: No Do you have a cough?: No Do you have any weakness?: No Do you have any diarrhea?: No Are you experiencing any unusual bleeding?: No Do you have any muscle aches/pain?: No Do you have any abdominal pain?: Yes Are you experiencing loss of taste or smell?: No Other Medical History Have you received the Flu Vaccine for this season: No Have you received the Pneumonia Vaccine: No ROS Obtained: Yes Systems reviewed as appropriate & no additional complaints except as documented Physical Exam General General appearance: alert and in no apparent distress Respiratory Respiratory exam: Present normal lung sounds bilaterally Cardiovascular Cardiovascular exam: Present regular rate Neurological Exam Neurological exam: Present alert and oriented X3 Medical Decision Making Medical Records Medical records reviewed: Yes I reviewed the patient's medical records. Screening: Per USPSTF and CDC recommendations, given the prevalence of disease in our region, it is our hospital?s policy to screen for HIV and viral Hepatitis for all patients aged 18 and over and those with ongoing risk factors. Cooper Inquiry Pt receiving controlled substance: No Vital Signs: 12/07/24 15:56 12/07/24 16:08 12/07/24 16:30 Temperature 97.6 F Temperature Source Oral Pulse Rate 84 88 Pulse Rate [Right] 88 Respiratory Rate 16 Blood Pressure 133/85 120/88 Blood Pressure [Right Arm] 145/102 H Blood Pressure Mean [Right Arm] 116 Blood Pressure Source [Right Arm] Automatic Cuff Blood Pressure Position [Right Arm] Sitting 02 Sat by Pulse Oximetry 98 99 100 Oxygen Delivery Method Room Air Room Air Room Air 12/07/24 17:00 12/07/24 17:30 12/07/24 18:45 Temperature 97.6 F Temperature Source Pulse Rate 86 87 89 Pulse Rate [Right] Respiratory Rate 15 Blood Pressure 111/68 134/89 132/80 Blood Pressure [Right Arm] Blood Pressure Mean [Right Arm] Blood Pressure Source [Right Arm] Blood Pressure Position [Right Arm] 02 Sat by Pulse Oximetry 100 98 Oxygen Delivery Method Room Air Room Air Room Air Lab Data Lab results reviewed: Yes I reviewed the patient's lab results. Lab Results 12/07/24 16:24: WBC 9.9, RBC 4.08 L, Hgb 11.4 L, Hct 34.2 L, MCV 83.8, MCH 27.9, MCHC 33.3, RDW 13.7, Plt Count 419, MPV 11.5 H, Neut % (Auto) 83.8 H, Lymph % (Auto) 12.2, [place] % (Auto) 3.6, Eos % (Auto) 0.0 L, Baso % (Auto) 0.2, Neut # (Auto) 8.3 H, Lymph # (Auto) 1.2, [place] # (Auto) 0.4, Eos # (Auto) 0.0, Baso # (Auto) 0.0, Sodium 137, Potassium 3.7, Chloride 101, Carbon Dioxide 24, Anion Gap 15.7 H, BUN 5 L, Creatinine 0.60, Estimated Creat Clear 210, Estimated GFR 126, Est GFR ( Amer) 153, Glucose 109 H, Calcium 9.3, Magnesium 1.8, Total Bilirubin 0.7, AST 29, ALT 25, Alkaline Phosphatase 75, Total Protein 7.8, Albumin 4.6, Globulin 3.2, Albumin/Globulin Ratio 1.4, Lipase 120, Serum HCG, Qual Negative, Acetone Level None detected 12/07/24 16:24 12/07/24 16:24 Orders (Tests/Meds): ED MEDICATIONS Discontinued Medications Generic Name Dose Route Start Last Admin Trade Name Arianna PRN Reason Stop Dose Admin Buspirone HCl 5 mg 12/07/24 17:51 12/07/24 18:15 Buspirone Hcl 5 Mg Tablet PO 12/07/24 17:52 5 mg ONCE ONE Administration Dicyclomine HCl 20 mg 12/07/24 18:16 12/07/24 18:37 Dicyclomine 10mg Capsule PO 12/07/24 18:17 20 mg ONCE ONE Administration Promethazine HCl 25 mg 12/07/24 17:34 12/07/24 17:38 Promethazine Hcl 25mg/Ml 1ml Vial IV 12/07/24 17:35 25 mg ONCE ONE Administration Sodium Chloride 25 ml 12/07/24 17:34 12/07/24 17:38 Sodium Chloride 0.9% 25ml Bag IV 12/07/24 17:35 25 ml ONCE ONE Administration ORDERS Category Date Time Status Acetone, Serum (Rapid) Stat Lab 12/07/24 16:24 Completed CBC w/Auto Diff [Complete Blood Count Auto Diff] Stat Lab 12/07/24 16:24 Completed CMP [Comprehensive Metabolic Panel] Stat Lab 12/07/24 16:24 Completed HCG Qualitative, Serum Stat Lab 12/07/24 16:24 Completed Lipase Stat Lab 12/07/24 16:24 Completed MG [Magnesium] Stat Lab 12/07/24 16:24 Completed Medical Decision Narrative: In summary patient is a 19-year-old female who presents to the emergency department for evaluation of abdominal pain and vomiting. Patient is initially hypertensive with a blood pressure 145/102 heart rate 88 respiratory rate 16 satting at 98% on room air with a temperature of 97.6 . Physical exam is remarkable for diffuse abdominal tenderness without rebound or guarding or rigidity. Bowel sounds normal active. Differential diagnosis includes functional abdominal pain versus gastroparesis versus ileus etc. Initial workup will be conducted with hematologic labs. Initial interventions include slight bolus Phenergan. Initial workup reviewed by me shows that her white count is 9.9 hemoglobin and hematocrit are 11.4 and 34.2 respectively with an absolute neutrophil count of 8.3, Is 15.7, BUN is 5 creatinine 0.6 GFR is 126 glucose 109 4.6 total protein 7.8 lipase is 120 serum hCG is negative acetone is not detected. In my review of her previous laboratory testing there is no acute change from 11/22/2024. I did had an interactive discussion with Dr. Allen of gastroenterology and we discussed patient OVIEDO presentation and findings along with patient management. He recommended continued outpatient follow-up and testing with his office. He also recommended that we start BuSpar at a low dose in the evening for functional abdominal pain. He also recommended possibly trying antispasmodic like Bentyl. Given this. Upon repeat evaluation had resolution of her abdominal pain is tolerating oral intake. Given this patient is appropriate for discharge with follow-up with gastroenterology and strict return precautions. Critical Care Critical Care Time Critical Care Time: No
--- NOTE | 2024-12-07 16:29 | PC.NURSE ---
Aleksey Santos PAC at bedside
[2024-12-07 16:30] VITALS: BP 120/88; PULSE 88; O2SAT 100
[2024-12-07 17:00] VITALS: BP 111/68; PULSE 86; O2SAT 100
[2024-12-07 17:30] VITALS: BP 134/89; PULSE 87; O2SAT 98
[2024-12-07] MEDS: SODIUM CHLORIDE 0.9% 25ML BAG 25 ML IV (17:38)
[2024-12-07] MEDS: PROMETHAZINE HCL 25MG/ML 1ML VIAL 25 MG IV (17:38)
[2024-12-07 17:39] LABS: Basophils % 0.2 % (0.1-2.0); Hematocrit 34.2 % (37.0-47.0); Hemoglobin 11.4 g/dL (12.2-16.2); Lymphocytes # 1.2 K/mm3 (0.7-4.5); Lymphocytes % 12.2 % (10-50); Mean Corpuscular HGB Conc 33.3 g/dL (31.8-35.4); Mean Corpuscular Hemoglobin 27.9 pg (27.0-31.2); Mean Corpuscular Volume 83.8 fl (81-99); Mean Platelet Volume 11.5 fl (7.4-10.4); Monocytes # 0.4 K/mm3 (0.1-1.0); Monocytes % 3.6 % (1.7-9.3); Neutrophils # 8.3 K/mm3 (1.8-7.8); Neutrophils % 83.8 % (37.0-80.0); Platelet Count 419 K/mm3 (142-424); Red Blood Count 4.08 M/mm3 (4.20-5.40); Red Cell Distribution Width 13.7 % (11.5-17.5); White Blood Count 9.9 K/mm3 (4.8-10.8)
[2024-12-07 17:49] LABS: Albumin Level 4.6 g/dl (3.5-5.0); Chloride 101 mmol/L (98-107); Potassium 3.7 mmoL/L (3.5-5.1); Sodium 137 mmol/L (136-145)
[2024-12-07 17:51] LABS: HCG Qualitative, Serum Negative (Negative)
[2024-12-07 17:52] LABS: Alanine Aminotransferase 25 U/L (12-78); Albumin/Globulin Ratio 1.4 (1.1-1.8); Alkaline Phosphatase 75 U/L (38-126); Anion Gap 15.7 mEq/L (5-15); Aspartate Amino Transferase 29 U/L (14-36); Bilirubin,Total 0.7 mg/dl (0.2-1.3); Blood Urea Nitrogen 5 mg/dl (7-17); Carbon Dioxide 24 mmol/L (22.0-30.0); Creatinine Clearance Estimated 210 mL/min (50-200); Estimated Glomerular Filt Rate 126 ml/min (>60); GFR (African American) 153 ML/MIN (>60); Globulin 3.2 g/dL (1.3-3.2); Lipase 120 U/L (23-300); Total Protein,Serum 7.8 g/dl (6.3-8.2)
[2024-12-07 17:53] LABS: Calcium 9.3 mg/dl (8.4-10.2); Glucose 109 mg/dl (74-100)
--- NOTE | 2024-12-07 18:04 | PC.NURSE ---
I called the HS to request he bring the buspar because it is unavailable in our omni.
[2024-12-07 18:07] LABS: Magnesium 1.8 mg/dl (1.6-2.3)
[2024-12-07] MEDS: BUSPIRONE HCL 5 MG TABLET PO (18:15)
[2024-12-07] MEDS: DICYCLOMINE 10MG CAPSULE 20 MG PO (18:37)
[2024-12-07 18:45] VITALS: BP 132/80; PULSE 89; RESP 15; TEMP 36.4; O2SAT 100
[2024-12-07 20:33] LABS: Acetone, Serum (Rapid) None Detected (None Detect)
== END 2024-12-07 18:46 | disposition home or self-care (01) ==
PROVIDERS: Physician Assistant; Emergency Provider Emergency Medicine; PCP Internal Medicine
DX: R10.9 Unspecified abdominal pain (principal); R11.2 Nausea with vomiting, unspecified
CPT/HCPCS: 80053; 82009; 83690; 83735; 84703; 85025; 96374; 99283; J2550

== ENCOUNTER 2024-12-21 08:40 | Day surgery (SDC) | payer MEDICARE, SELFPAY ==
[2024-12-17 16:09] VITALS: BMI 35.2
[2024-12-21 10:38] VITALS: BP 115/81; PULSE 98; RESP 18; TEMP 37.1; O2SAT 100
[2024-12-21] MEDS: LACTATED RINGERS 1000ML 1,000 ML 50 ML IV (10:56)
--- NOTE | 2024-12-21 11:01 | EXP.ANES.CKL ---
[facility] Disclaimer: The information contained in this section may have been updated after the patient was seen, as this information can be updated by other users. Medical History Grand mal seizure disorder Cerebral palsy Surgical History History of tonsillectomy Family History Family/Other Cancer Coronary artery disease Heart attack Social History Smoking Status: Never smoker alcohol intake: never substance use type: denies use current occupational status: disabled Travel in the last 8 weeks: None housing: house current occupational exposures/hazards: No caffeine: Yes Have you lived/traveled outside US in past 30 days?: No Contact w/someone who lives/traveled outside US past 30 days?: No Exposure to someone with infectious disease in past 14 days?: No Do you have a fever (greater than 100.4 F or 38 C)?: No Have you tested positive for COVID-19: No Exposed to someone with COVID-19 in past 14 days?: No Do you have a sore throat?: No Do you have a cough?: No Do you have any weakness?: No Are you experiencing any nausea/vomitting?: No Do you have any diarrhea?: No Are you experiencing any unusual bleeding?: No Do you have any muscle aches/pain?: No Do you have any abdominal pain?: No Are you experiencing loss of taste or smell?: No [facility] Anesthesia Checklist Patient Identification Patient Identification: Arm Band Structural Data Admitted From: Home Planned Operative Procedure/s: EGD Consent for Planned Operative Procedure(s) Verified: Yes Verified Documents: Surgical Consent and History and Physical NPO Status Verified Time NPO: 00:00 Additional verifications Anesthesia Reactions: No Airway Assessment Mallampati Score:: Class II C-Spine Mobility Assessed: Yes TMJ Mobility Assessed: Yes Dentition: Good Dentition Neurological Assessment Level of Consciousness: Awake, Alert and Appropriate Anesthesia Plan Anesthesia Risk discussed: Yes Anesthesia Plan: Verified ASA Class: II Anesthesia Type: MAC
[2024-12-21 11:06] LABS: Urine Pregnancy, HCG Qual. Negative (Negative)
--- NOTE | 2024-12-21 11:17 | EXP.HP ---
History of Present Illness *Admission Date: 12/21/24 *Reason for visit:: Nausea/vomiting, epigastric pain, heartburn, reflux and weight loss *History of present illness: Ms. Phillip is a 19-year-old female who is here for diagnostic EGD secondary to nausea, vomiting, epigastric pain, heartburn, reflux, loss of appetite and weight loss. The examination is deemed medically necessary for diagnostic EGD. The patient has been seen, interviewed and examined prior to the procedure by both myself and the anesthesia provider. [facility] Disclaimer: The information contained in this section may have been updated after the patient was seen, as this information can be updated by other users. Medical History Grand mal seizure disorder Cerebral palsy Surgical History History of tonsillectomy Family History Family/Other Cancer Coronary artery disease Heart attack Social History Smoking Status: Never smoker alcohol intake: never substance use type: denies use current occupational status: disabled Travel in the last 8 weeks: None housing: house current occupational exposures/hazards: No caffeine: Yes Have you lived/traveled outside US in past 30 days?: No Contact w/someone who lives/traveled outside US past 30 days?: No Exposure to someone with infectious disease in past 14 days?: No Do you have a fever (greater than 100.4 F or 38 C)?: No Have you tested positive for COVID-19: No Exposed to someone with COVID-19 in past 14 days?: No Do you have a sore throat?: No Do you have a cough?: No Do you have any weakness?: No Are you experiencing any nausea/vomitting?: No Do you have any diarrhea?: No Are you experiencing any unusual bleeding?: No Do you have any muscle aches/pain?: No Do you have any abdominal pain?: No Are you experiencing loss of taste or smell?: No Other Medical History Have you received the Flu Vaccine for this season: No Have you received the Pneumonia Vaccine: No Review of Systems Review of Systems Review of systems (narrative): Negative *Cardiovascular Comments: Negative *Gastrointestinal Comments: Negative *Genitourinary Comments: Negative *Musculoskeletal Comments: Negative *Neurologic Comments: Negative Meds Home Medications and Allergies Home Medications ?Medication ?Instructions ?Recorded ?Confirmed ?Type ondansetron 4 mg disintegrating 4 mg PO Q8H PRN Nausea #12 tabs 10/20/24 12/21/24 Rx tablet aluminum-mag hydroxide-simethicone 5 ml PO Q6H PRN indigestion #3,000 11/17/24 12/21/24 Rx 400 mg-400 mg-40 mg/5 mL oral susp mL (Maalox Maximum Strength) pantoprazole 40 mg tablet,delayed 40 mg PO DAILY #30 tabs 11/17/24 12/21/24 Rx release bismuth subsalicylate 525 mg/15 mL 525 mg PO Q30M PRN Pain 12/15/24 12/21/24 History oral suspension (Pepto-Bismol Max St) buspirone 5 mg tablet 5 mg PO DAILY 12/15/24 12/21/24 History dicyclomine 10 mg capsule 10 mg PO DAILY abdominal pain 12/15/24 12/21/24 History New Prescriptions to Start Prescriptions: Allergies Allergy/AdvReac Type Severity Reaction Status Date / Time No Known Allergies Allergy Verified 12/21/24 10:41 Exam Data for Last 24 hours Vital signs and Labs for Last 24 Hours: Temp Pulse Resp BP Pulse Ox 98.7 F 98 H 18 115/81 100 12/21/24 10:38 12/21/24 10:38 12/21/24 10:38 12/21/24 10:38 12/21/24 10:38 Laboratory Results - last 24 hr 12/21/24 10:31: Urine HCG, Qual Negative *Routine HEENT Exam Head: Present normocephalic Eye: Present EOMI and PERRL ENT: Present mucous membranes moist *Routine Neck Exam Neck: Present supple *Routine Respiratory Exam Respiratory: Present CTA bilaterally *Routine Cardiovascular Exam Cardiovascular: Present RRR *Routine Abdominal Exam Abdominal: Present soft and normoactive bowel sounds; Absent tenderness *Routine Rectal Exam Rectal:: deferred *Routine Genitalia Exam Genitalia:: deferred *Routine Extremities Exam Extremities: Absent cyanosis, clubbing or edema *Routine Skin Exam Skin: Present warm; Absent rash *Routine Neurological Exam Neurological: Present alert and oriented X3 Assessment and Plan *Assessment and plan (1) Epigastric pain: Status: Acute Category: Medical Code(s): R10.13 - Epigastric pain (2) Nausea & vomiting: Status: Acute Qualifiers: Vomiting type: unspecified Qualified Code(s): R11.2 - Nausea with vomiting, unspecified Category: Medical Code(s): R11.2 - Nausea with vomiting, unspecified (3) Heartburn: Status: Acute Category: Medical Code(s): R12 - Heartburn (4) Acid reflux: Status: Acute Category: Medical Code(s): K21.9 - Gastro-esophageal reflux disease without esophagitis (5) Loss of appetite: Status: Acute Category: Medical Code(s): R63.0 - Anorexia (6) Weight loss: Status: Acute Category: Medical Code(s): R63.4 - Abnormal weight loss Plan A/P: 1. Epigastric pain with nausea, vomiting, heartburn, reflux, loss of appetite and weight loss is the preprocedural diagnosis. The patient will be anesthetized/sedated using MAC sedation. The patient has been seen and examined. Cardiac and lung assessment prior to the examination is stable. Proceed with planned diagnostic EGD
--- NOTE | 2024-12-21 11:19 | P.PCN_ITS ---
[facility] Procedure Note Date: 12/21/24 Time: 11:31 Procedure Note:: Upper Endoscopy Procedure Report: Esophagogastroduodenoscopy with cold biopsies Endoscopost: Ramses Allen II, MD Referring Physician: Arnold Rodríguez DO Date of Procedure: December 21, 2024 Equipment: Olympus GIF 190 standard upper endoscope Sedation: MAC sedation Indications: Ms. Phillip is a 19-year-old female with ongoing symptoms of dyspepsia with intermittent severe epigastric abdominal pain, nausea and vomiting. She did have gastric surgery as an . She has had some loss of appetite and weight loss. She has gone to the emergency department at [facility] and the [facility] several times. She has had an unremarkable CAT scan and right upper quadrant abdominal ultrasound. She is currently on dicyclomine, buspirone, pantoprazole, Maalox and Zofran. She does report that she has good bowel evacuation. There have been multiple family members with peptic ulcer disease. The patient does have borderline anemia with hemoglobin hematocrit of 11.4 and 34.2. Her liver and pancreatic chemistries are normal. Her CAT scan from 11/17/2024 showed normal-appearing liver, gallbladder, spleen and pancreas. There did appear to be abundant stool in the right colon. Procedure: Prior to the procedure, a history and physical exam was performed, and patient's medications and allergies were reviewed. The risks, benefits and alternatives of the sedation and procedure were discussed with the patient. All questions were answered and informed consent was obtained. The patient was brought to the procedure room. Patient identification and proposed procedure were verified by the physician and the nurse. The patient was placed in a left lateral decubitus position and the scope was passed under direct vision. Throughout the procedure, the patient's blood pressure, pulse, and oxygen saturations were monitored continuously. The upper GI endoscopy was accomplished without difficulty. The patient tolerated the procedure well. Findings: The scope was passed directly into the upper esophagus and advanced to the third portion of the duodenum. The post bulbar duodenum, ampulla and duodenal bulb were normal with normal mucosa and conniventes. There was mild lymphoid stasis of the duodenum. The scope was withdrawn through a normal duodenal bulb and pylorus into the stomach. There is very mild reactive gastropathy of the antrum. The body and fundus of the stomach were normal. Biopsies were taken at the incisura to rule out H. pylori. Upon retroflexion there was a 3 cm (medium size) sliding hiatal hernia. The scope was then withdrawn into the esophagus. There was grade C?D (LA classification) reflux esophagitis with superficial erosions. There was no peptic stricture or obvious Goodman's. The remainder of the esophageal mucosa was normal. Impression: 1. Grade C?D (LA classification) reflux esophagitis with 3 cm sliding hiatal hernia 2. Mild antral reactive gastropathy Plan: I would continue PPI therapy or Voquezna for complicated GERD/reflux e sophagitis. I do suspect that most of her GERD/reflux and symptoms of dyspepsia are related to and driven by lower intestinal gas pressure gradients/high gas pressure buildup resulting in backflow of bile and peptic fluid from the duodenum into the stomach (duodenal reflux). This gas production (carbon dioxide, hydrogen, methane, etc.) from the lower intestinal tract is the byproduct of colonic bacterial fermentation. This colonic fermentation occurs when there is more carbohydrate (dietary starches, sugars and high residue plant fiber) substrate that does not get digested (in the middle or small intestine) or occurs when there is colonic fecal buildup and colonic bacterial overgrowth. This indeed leads to bloating and the gas pressure buildup with gas pressure gradients that do drive backflow and dyspepsia. I would recommend that she begin a fiber bowel regimen and she does have obstipation/increased fecal burden on recent CAT scan.
[2024-12-21 11:23] VITALS: O2SAT 100
[2024-12-21 11:34] VITALS: BP 117/76; PULSE 105; RESP 18; TEMP 36.6; O2SAT 94
[2024-12-21 11:44] VITALS: BP 120/84; PULSE 110; RESP 18; O2SAT 95
[2024-12-21 11:54] VITALS: BP 119/71; PULSE 110; RESP 18; O2SAT 96
[2024-12-21 12:04] VITALS: BP 118/76; PULSE 102; RESP 18; O2SAT 96
== END 2024-12-21 12:20 | disposition home or self-care (01) ==
PROVIDERS: PCP Internal Medicine; Visit Provider Internal Medicine Gastroenterology
PROC: 0DJ08ZZ Inspection of Upper Intestinal Tract, Via Natural or Artificial Opening Endoscopic (ICD-10-PCS; CPT 43239; principal; 2024-12-21 11:00)
DX: K31.5 Obstruction of duodenum (principal); K44.9 Diaphragmatic hernia without obstruction or gangrene; K31.9 Disease of stomach and duodenum, unspecified; K21.00 Gastro-esophageal reflux disease with esophagitis, without bleeding; R11.2 Nausea with vomiting, unspecified; R12 Heartburn; K21.9 Gastro-esophageal reflux disease without esophagitis; R63.0 Anorexia; R63.4 Abnormal weight loss
CPT/HCPCS: 43239; 81025; J7120

== ENCOUNTER 2025-02-10 07:58 | Emergency (ER) | payer MEDICARE, SELFPAY ==
[2025-02-10] VITALS (11 sets, daily range): BP systolic 118–140; BP diastolic 72–85; PULSE 72–85; RESP 15–16; TEMP 36.6–36.7; O2SAT 95–100; BMI 39.0
--- NOTE | 2025-02-10 08:03 | HMH.EDGENADL ---
Discharge Plan Disposition Patient Disposition: Home, Self-Care Prescriptions Prescriptions: No Action buspirone 5 mg tablet 5 mg PO DAILY dicyclomine 10 mg capsule 10 mg PO DAILY Pepto-Bismol Max St 525 mg/15 mL suspension 525 mg PO Q30M PRN (Reason: Pain) Rx Instructions: do not exceed 8 doses in a 24 hour period pantoprazole 40 mg tablet,delayed release (DR/EC) 40 mg PO DAILY Qty: 30 1RF alum-mag hydroxide-simeth [Maalox Maximum Strength] 400-400-40 mg/5 mL suspension 5 ml PO Q6H PRN (Reason: indigestion) Qty: 3000 0RF ondansetron 4 mg Tablet,Disintegrating 4 mg PO Q8H PRN (Reason: Nausea) Qty: 12 0RF omeprazole 40 mg capsule,delayed release(DR/EC) 40 mg PO DAILY Qty: 30 12RF Rx Instructions: Please take 1 capsule p.o. daily Referrals Follow up/Referrals: Jose Garvin MD [Primary Care Provider] - See instructions Activity Restrictions/Add. Instructions Additional Instructions/Restrictions: It is very important to take your bowel regimen daily to prevent constipation. Clinical Impressions Clinical Impression: Constipation Instructions Patient Instructions: DI for Acute Abdominal Pain Print Language Print Language: Palauan Discharge ED Provider: Doreen Dean General Adult HPI General Chief complaint: Abdominal Pain Stated complaint: stomach pain Time Seen by Provider: 02/10/25 08:03 History of Present Illness HPI narrative: Patient is a 19-year-old with past medical history significant for constipation and cerebral palsy presents to the emergency department with abdominal pain nausea vomiting. Patient has refused to take her daily MiraLAX and Metamucil for the last 5 days and whenever this happens patient does not have bowel movements. Last bowel movement was over a week ago. Patient has not been able to keep anything down p.o. over the last 2 to 3 days. No bile or blood in vomit. Patient is complaining of moderate diffuse abdominal pain. Denies urinary symptoms. No surgical history. Patient has developed a wet cough today after multiple episodes of vomiting. Related Data Home Medications ?Medication ?Instructions ?Recorded ?Confirmed bismuth subsalicylate 525 mg/15 mL 525 mg PO Q30M PRN Pain 12/15/24 12/21/24 oral suspension (Pepto-Bismol Max St) buspirone 5 mg tablet 5 mg PO DAILY 12/15/24 12/21/24 dicyclomine 10 mg capsule 10 mg PO DAILY abdominal pain 12/15/24 12/21/24 Previous Rx's ?Medication ?Instructions ?Recorded ondansetron 4 mg disintegrating 4 mg PO Q8H PRN Nausea #12 tabs 10/20/24 tablet aluminum-mag hydroxide-simethicone 5 ml PO Q6H PRN indigestion #3,000 11/17/24 400 mg-400 mg-40 mg/5 mL oral susp mL (Maalox Maximum Strength) pantoprazole 40 mg tablet,delayed 40 mg PO DAILY #30 tabs 11/17/24 release omeprazole 40 mg capsule,delayed 40 mg PO DAILY #30 caps 12/21/24 release Allergies Allergy/AdvReac Type Severity Reaction Status Date / Time No Known Allergies Allergy Verified 12/21/24 10:41 [facility] Disclaimer: The information contained in this section may have been updated after the patient was seen, as this information can be updated by other users. Medical History (Updated 02/10/25 @ 11:20 by Doreen Dean MD) Grand mal seizure disorder Cerebral palsy Surgical History History of tonsillectomy Family History Family/Other Cancer Coronary artery disease Heart attack Social History Smoking Status: Never smoker alcohol intake: never substance use type: denies use current occupational status: disabled Travel in the last 8 weeks: None housing: house current occupational exposures/hazards: No caffeine: Yes Have you lived/traveled outside US in past 30 days?: No Contact w/someone who lives/traveled outside US past 30 days?: No Exposure to someone with infectious disease in past 14 days?: No Do you have a fever (greater than 100.4 F or 38 C)?: No Have you tested positive for COVID-19: No Exposed to someone with COVID-19 in past 14 days?: No Do you have a sore throat?: No Do you have a cough?: No Do you have any weakness?: No Do you have any diarrhea?: No Are you experiencing any unusual bleeding?: No Do you have any muscle aches/pain?: No Do you have any abdominal pain?: Yes Are you experiencing loss of taste or smell?: No Other Medical History Have you received the Flu Vaccine for this season: No Have you received the Pneumonia Vaccine: No ROS Obtained: Yes All systems reviewed & no additional complaints except as documented Physical Exam General General appearance: alert and in no apparent distress Head Head exam: atraumatic Eye Eye exam: Present PERRL and EOMI ENT ENT exam: Present mucous membranes dry and other (Crusting vomit on mouth) Respiratory Respiratory exam: Present normal lung sounds bilaterally and other (Productive cough); Absent respiratory distress Cardiovascular Cardiovascular exam: Present regular rate and normal rhythm Abdominal Exam Abdominal exam: Present soft, distention and tenderness (Diffuse abdominal tenderness); Absent guarding or rebound Neurological Exam Neurological exam: Present alert and oriented X3 Medical Decision Making Medical Records Screening: Per USPSTF and CDC recommendations, given the prevalence of disease in our region, it is our hospital?s policy to screen for HIV and viral Hepatitis for all patients aged 18 and over and those with ongoing risk factors. Cooper Inquiry Pt receiving controlled substance: No Vital Signs: 02/10/25 08:10 02/10/25 08:15 02/10/25 08:42 Temperature 98.1 F Temperature Source Oral Pulse Rate 85 78 Pulse Rate [Left] 79 Respiratory Rate 15 Blood Pressure 128/77 119/79 Blood Pressure [Left Arm] 118/72 Blood Pressure Mean [Left Arm] 87 Blood Pressure Source [Left Arm] Automatic Cuff Blood Pressure Position [Left Arm] Sitting 02 Sat by Pulse Oximetry 98 99 100 Oxygen Delivery Method Room Air Room Air Room Air 02/10/25 08:45 02/10/25 09:00 02/10/25 09:30 Temperature Temperature Source Pulse Rate 76 73 75 Pulse Rate [Left] Respiratory Rate 16 Blood Pressure 131/79 139/85 140/80 Blood Pressure [Left Arm] Blood Pressure Mean [Left Arm] Blood Pressure Source [Left Arm] Blood Pressure Position [Left Arm] 02 Sat by Pulse Oximetry 100 95 100 Oxygen Delivery Method Room Air Room Air Room Air 02/10/25 10:00 02/10/25 10:30 Temperature Temperature Source Pulse Rate 74 72 Pulse Rate [Left] Respiratory Rate Blood Pressure 124/73 125/77 Blood Pressure [Left Arm] Blood Pressure Mean [Left Arm] Blood Pressure Source [Left Arm] Blood Pressure Position [Left Arm] 02 Sat by Pulse Oximetry 99 100 Oxygen Delivery Method Room Air Room Air Lab Data Lab Results 02/10/25 08:05: Urine Color Yellow, Urine Appearance Clear, Urine pH 6.0, Ur Specific [place] 1.025, Urine Protein Negative, Urine Glucose (UA) Negative, Urine Ketones Trace, Urine Blood Negative, Urine Nitrate Negative, Urine Bilirubin 1+ A, Urine Urobilinogen 0.2, Ur Leukocyte Esterase Negative, Urine RBC 3-5, Urine WBC 3-5, Ur Squamous Epith Cells 10-20, Urine Bacteria 2+ 02/10/25 08:32: WBC 12.8 H, RBC 3.93 L, Hgb 10.7 L, Hct 32.1 L, MCV 81.7, MCH 27.2, MCHC 33.3, RDW 14.0, Plt Count 520 H, MPV 10.3, Neut % (Auto) 72.4, Lymph % (Auto) 19.4, [place] % (Auto) 7.3, Eos % (Auto) 0.3, Baso % (Auto) 0.2, Neut # (Auto) 9.2 H, Lymph # (Auto) 2.5, [place] # (Auto) 0.9, Eos # (Auto) 0.0, Baso # (Auto) 0.0, Sodium 137, Potassium 3.5, Chloride 99, Carbon Dioxide 28, Anion Gap 13.5, BUN 10, Creatinine 0.60, Estimated Creat Clear 212, Estimated GFR 126, Est GFR ( Amer) 153, Glucose 106 H, Calcium 9.3, Magnesium 2.0, Total Bilirubin 0.7, AST 27, ALT 23, Alkaline Phosphatase 69, Total Protein 8.1, Albumin 4.4, Globulin 3.7 H, Albumin/Globulin Ratio 1.2, Lipase 157, Serum HCG, Qual Negative 02/10/25 08:32 02/10/25 08:32 Orders (Tests/Meds): ED MEDICATIONS Discontinued Medications Generic Name Dose Route Start Last Admin Trade Name Freq PRN Reason Stop Dose Admin Lactated Ringer's 1,000 mls @ 999 mls/hr 02/10/25 08:15 02/10/25 08:35 Lactated Ringer's 1000 Ml Bag IV 02/10/25 09:15 999 mls/hr .Q1H1M ONE Administration Iopamidol 75 ml 02/10/25 09:42 02/10/25 09:43 Iopamidol-370 (76%);100ml Bottle IV 02/10/25 09:43 75 ml ONCE ONE Administration Ketorolac Tromethamine 30 mg 02/10/25 08:15 02/10/25 08:35 Ketorolac 30mg/Ml Vial IV 02/10/25 08:16 30 mg ONCE ONE Administration Promethazine HCl 25 mg 02/10/25 08:15 02/10/25 08:35 Promethazine Hcl 25mg/Ml 1ml Vial IV 02/10/25 08:16 25 mg ONCE ONE Administration Sodium Chloride 25 ml 02/10/25 08:15 02/10/25 08:35 Sodium Chloride 0.9% 25ml Bag IV 02/10/25 08:16 25 ml ONCE ONE Administration Sodium Chloride 10 ml 02/10/25 09:42 02/10/25 09:43 Sodium Chloride 0.9% 10ml Syr (Rad Only) IV 02/10/25 09:43 10 ml ONCE ONE Administration Sodium Phosphate 133 ml 02/10/25 10:47 02/10/25 10:56 Sodium Phos/Biphosphate Fleet 133ml Enema RC 02/10/25 10:48 133 ml ONCE ONE Administration ORDERS Category Date Time Status CT abdomen pelvis w con Stat Cat Scan 02/10/25 08:15 Completed XR chest 2V Stat Exams 02/10/25 08:15 Completed Complete Blood Count Auto Diff Stat Lab 02/10/25 08:32 Completed Comprehensive Metabolic Panel Stat Lab 02/10/25 08:32 Completed HCG Qualitative, Serum Stat Lab 02/10/25 08:32 Completed Lipase Stat Lab 02/10/25 08:32 Completed Magnesium Stat Lab 02/10/25 08:32 Completed UA [Urinalysis and Microscopic] Stat Lab 02/10/25 08:05 Completed Urine Culture Stat Micro 02/10/25 08:05 Received Medical Decision Narrative: In summary, this 19-year-old female presents to the emergency department today with abdominal pain nausea vomiting. On initial evaluation patient is hemodynamically stable saturating appropriately on room air afebrile in no acute distress. Differential diagnosis includes but is not limited to constipation volvulus ileus obstruction aspiration pneumonitis pyelonephritis. Based on these concerns, I ordered CBC CMP magnesium lipase lactate UA CT abdomen pelvis with IV contrast chest x-ray beta-hCG UA. Patient received lactated Ringer's Phenergan Toradol for treatment. Labs personally reviewed demonstrate UA nitrate negative, no pyuria, leukocytosis, stable anemia XR personally interpreted demonstrates no focal opacity. CT imaging personally interpreted demonstrate no air fluid levels or transition point concerning for obstruction. Patient received enema with with improvement of symptoms. Patient able to tolerate p.o. Amenable to discharge at this time with outpatient follow-up with gastroenterology with recommendations to continue to take patient's bowel regimen. Of note, social determinants of health include inability to see specialist in timely manner. Critical Care Critical Care Time Critical Care Time: No
[2025-02-10 08:14] LABS: Microscopic, Urine URINE MICROSCOPIC (MICROSCOPIC)
--- NOTE | 2025-02-10 08:15 | XR_ITS ---
FINAL REPORT CLINICAL HISTORY: Vomiting, shortness of breath COMPARISON: 10/11/2016 FINDINGS: PA and lateral views of the chest are obtained. The cardiac and mediastinal silhouettes are within normal limits. The lungs are clear. There is no pleural effusion, pneumothorax, or acute osseous abnormality. IMPRESSION: No radiographic evidence of acute cardiac or pulmonary disease. Reviewed, Interpreted and Dictated by Kenya Red MD Transcribed by Agata Piper Authenticated and . [facility]
--- NOTE | 2025-02-10 08:15 | CT_ITS ---
FINAL REPORT TECHNIQUE: After the administration of intravenous contrast, axial images were obtained through the abdomen and pelvis by computed tomography. This study was performed with technique to keep radiation doses as low as reasonably achievable, (ALARA). Individualized dose reduction techniques using automated exposure control or adjustment of the MA and/or KV according to the patient's size were employed. CLINICAL HISTORY: abdominal pain, n/v concern for obstruction COMPARISON: 11/17/2024 FINDINGS: Abdomen: The lung bases are clear. The liver is normal in size and attenuation. Gallbladder is present. The spleen is unremarkable. The adrenals are normal. The pancreas is unremarkable. The kidneys enhance appropriately. The aorta is normal in caliber. There is no free fluid or adenopathy. No evidence of small bowel obstruction. Pelvis: The appendix is normal. Uterus and ovaries are unremarkable for patient's age. The urinary bladder is unremarkable. There is no free fluid or adenopathy. No acute osseous abnormality is seen. IMPRESSION: No acute intra-abdominal process. Reviewed, Interpreted and Dictated by Kenya Red MD Transcribed by Rosina Dukes Authenticated and [facility]
[2025-02-10 08:19] LABS: Appearance,Urine CLEAR (Clear); Blood, Urine Negative (Negative); Color,Urine YELLOW (Yellow); Glucose,Urine (UA) Negative (Negative); Ketones,Urine TRACE (Negative); Leukocyte Esterase,Urine Negative (Negative); Nitrate,Urine Negative (Negative); Protein,Urine Negative (Negative); Specific Gravity, Urine 1.025 (1.005-1.030); Urobilinogen,Urine 0.2 EU/dl (0.2)
[2025-02-10 08:29] LABS: Bacteria,Urine 2+ /lpf
[2025-02-10 08:30] LABS: Bilirubin,Urine 1+ (Negative)
[2025-02-10] MEDS: SODIUM CHLORIDE 0.9% 25ML BAG 25 ML IV (08:35)
[2025-02-10] MEDS: PROMETHAZINE HCL 25MG/ML 1ML VIAL 25 MG IV (08:35)
[2025-02-10] MEDS: LACTATED RINGERS 1000ML 1,000 ML 999 ML IV (08:35)
[2025-02-10] MEDS: KETOROLAC 30MG/ML VIAL 30 MG IV (08:35)
[2025-02-10 08:39] LABS: Basophils % 0.2 % (0.1-2.0); Eosinophils % 0.3 % (0.1-12.0); Hematocrit 32.1 % (37.0-47.0); Hemoglobin 10.7 g/dL (12.2-16.2); Lymphocytes # 2.5 K/mm3 (0.7-4.5); Lymphocytes % 19.4 % (10-50); Mean Corpuscular HGB Conc 33.3 g/dL (31.8-35.4); Mean Corpuscular Hemoglobin 27.2 pg (27.0-31.2); Mean Corpuscular Volume 81.7 fl (81-99); Mean Platelet Volume 10.3 fl (7.4-10.4); Monocytes # 0.9 K/mm3 (0.1-1.0); Monocytes % 7.3 % (1.7-9.3); Neutrophils # 9.2 K/mm3 (1.8-7.8); Neutrophils % 72.4 % (37.0-80.0); Nucleated Red Blood Cells # 0 10^3/uL; Nucleated Red Blood Cells % 0 %; Platelet Count 520 K/mm3 (142-424); Red Blood Count 3.93 M/mm3 (4.20-5.40); Red Cell Distribution Width-SD 41.2 fL; White Blood Count 12.8 K/mm3 (4.8-10.8)
[2025-02-10 08:52] LABS: Albumin Level 4.4 g/dl (3.5-5.0); Chloride 99 mmol/L (98-107); Sodium 137 mmol/L (136-145)
[2025-02-10 08:53] LABS: Potassium 3.5 mmoL/L (3.5-5.1)
[2025-02-10 08:55] LABS: Alanine Aminotransferase 23 U/L (12-78); Albumin/Globulin Ratio 1.2 (1.1-1.8); Alkaline Phosphatase 69 U/L (38-126); Anion Gap 13.5 mEq/L (5-15); Aspartate Amino Transferase 27 U/L (14-36); Bilirubin,Total 0.7 mg/dl (0.2-1.3); Blood Urea Nitrogen 10 mg/dl (7-17); Calcium 9.3 mg/dl (8.4-10.2); Carbon Dioxide 28 mmol/L (22.0-30.0); Creatinine Clearance Estimated 212 mL/min (50-200); Estimated Glomerular Filt Rate 126 ml/min (>60); GFR (African American) 153 ML/MIN (>60); Globulin 3.7 g/dL (1.3-3.2); Glucose 106 mg/dl (74-100); Lipase 157 U/L (23-300); Total Protein,Serum 8.1 g/dl (6.3-8.2)
--- NOTE | 2025-02-10 09:35 | PC.NURSE ---
per renee in lab, 2 minutes for HCG results
[2025-02-10 09:36] LABS: HCG Qualitative, Serum Negative (Negative)
--- NOTE | 2025-02-10 09:40 | PC.NURSE ---
pt taken to ct
[2025-02-10] MEDS: SODIUM CHLORIDE 0.9% 10ML SYR (RAD ONLY) 10 ML IV (09:43)
[2025-02-10] MEDS: IOPAMIDOL-370 (76%);100ML BOTTLE 75 ML IV (09:43)
--- NOTE | 2025-02-10 09:51 | PC.NURSE ---
pt back from ct
[2025-02-10] MEDS: SODIUM PHOS/BIPHOSPHATE FLEET 133ML ENEMA 133 ML RC (10:56)
--- NOTE | 2025-02-10 11:18 | PC.NURSE ---
I rounded on the pt, she had a small liquid BM. I helped her reposition in the bed. no needs voiced. no new complaints. call nur in reach.
== END 2025-02-10 11:40 | disposition home or self-care (01) ==
PROVIDERS: Emergency Provider Student in an Organized Health Care Education/Training Program; PCP Family Medicine
DX: R10.84 Generalized abdominal pain (principal); R11.2 Nausea with vomiting, unspecified; K59.00 Constipation, unspecified
CPT/HCPCS: 71046; 74177; 80053; 81001; 83690; 83735; 84703; 85025; 87086; 96361; 96374; 96375; 99285; J1885; J2550; J7120; Q9967

== ENCOUNTER 2025-07-01 15:36 | Outpatient (CLI) | payer MEDICARE, SELFPAY ==
[2025-07-01 19:33] LABS: Hematocrit 37.2 % (37.0-47.0); Hemoglobin 12.1 g/dL (12.2-16.2); Immature Granulocytes % 0.4 %; Mean Corpuscular HGB Conc 32.5 g/dL (31.8-35.4); Mean Corpuscular Hemoglobin 27.1 pg (27.0-31.2); Mean Corpuscular Volume 83.2 fl (81-99); Nucleated Red Blood Cells % 0 %; Platelet Count 486 K/mm3 (142-424); Red Blood Count 4.47 M/mm3 (4.20-5.40); Red Cell Distribution Width-SD 43.2 fL; White Blood Count 10.6 K/mm3 (4.8-10.8)
[2025-07-01 20:21] LABS: Alanine Aminotransferase 17 U/L (12-78); Albumin Level 4.6 g/dl (3.5-5.0); Albumin/Globulin Ratio 1.4 (1.1-1.8); Alkaline Phosphatase 103 U/L (38-126); Anion Gap 12.7 mEq/L (5-15); Aspartate Amino Transferase 21 U/L (14-36); Bilirubin,Total 0.5 mg/dl (0.2-1.3); Blood Urea Nitrogen 11 mg/dl (7-17); Calcium 9.6 mg/dl (8.4-10.2); Carbon Dioxide 27 mmol/L (22.0-30.0); Chloride 103 mmol/L (98-107); Cholesterol 150 mg/dl (140-200); Creatinine,Serum 0.60 mg/dl (0.52-1.04); Estimated Glomerular Filt Rate 125 ml/min (>60); GFR (African American) 151 ML/MIN (>60); Globulin 3.3 g/dL (1.3-3.2); Glucose 84 mg/dl (74-100); HDL Cholesterol 44 mg/dl (40-60); Potassium 4.7 mmoL/L (3.5-5.1); Sodium 138 mmol/L (136-145); Total Protein,Serum 7.9 g/dl (6.3-8.2); Triglycerides 102 mg/dl (30-150)
[2025-07-01 21:20] LABS: Hemoglobin A1C 5.3 % (4.0-6.0)
[2025-07-01 22:40] LABS: Thyroid Stimulating Hormone 1.13 uIU/mL (0.465-4.68)
--- OUTSIDE RECORDS SUMMARY | 2025-07-05 09:23 | XMS_ITS ---
Author Organization Unknown [facility] Start Date Provider Encounter for Check-up [id number] [facility]
--- OUTSIDE RECORDS SUMMARY | 2025-07-05 09:23 | XMS_ITS | Clinical Summary ---
Author Organization [facility] Address [address] [place] [address] Care Team Providers Care Pain Medicine Physician Name Role Phone Mily Hitchcock DO Primary Care Provider [phone] Allergies No known active allergies Medications No known medications Active Problems No known active problems Resolved Problems Problem Noted Date Diagnosed Date Resolved Date Spell of abnormal behavior 04/04/2022 0 04/06/2022 Immunizations Immunization Administration Dates Next Due DTaP 05/30/2007, 4,02/18/2004,2002,2003 Hib (PRP-OMP) 05/30/2007 Pneumococcal conjugate vacci ne, 10 valent 07/18/2004 Family History Medical History Relation Name Comments Cardiac disorder Other 1 Diabetes Other 2 Hypertension Other 3 Other cancer Other 4 Migraines Other 5 Relation Name Status Comments Other 1 Other 2 Other 3 Other 4 Other 5 Social History Tobacco Use Types Packs/Day Years Used Date Smoking Tobacco: Passive Smo ke Exposure - Never Smoker Comments Unknown Sex and Gender Information Value Date Recorded Sex Assigned at Not on file Legal Sex Female 8:13 PM EDT Gender Identity Not on file Sexual Orientation Not on file Last Filed Vital Signs Vital Sign Reading Time Taken Comments Blood Pressure 124/83 12/09/2024 1:44 AM EST Pulse 104 12/09/2024 1:44 AM EST Temperature 36.4 C (97.6 F) 12/09/2024 1:44 AM EST Respiratory Rate 16 12/09/2024 1:44 AM EST Oxygen Saturation 97% 12/09/2024 1:44 AM EST Inhaled Oxygen Concentration - - Weight 81.6 kg (180 lb) 04/04/2022 2:04 PM EDT Height 154.9 cm (5' 1 ) 04/04/2022 2:04 PM EDT Body Mass Index 34.01 04/04/2022 2:04 PM EDT Plan of Treatment Health Maintenance Due Date Last Done Comments [facility]-Depression Screening 2003 [facility]-Medicare Annual Wellness (AWV) 2003 [facility]-Infant/Child/Adol SDOH Screenings 2003 [facility]- SDOH Screenings 2021 [facility]-Adult SDOH Screenings 2021 [facility]-Pap Smear 2024 [id number] Vaccine ( season) 2025 [facility]-Influenza Vaccine (#1) 2025 07/30/2018, [facility]-DTaP,Tdap,and Td Vaccines (7 - Td or Tdap) 08/15/2025 08/15/2015, 05/30/2007, 07/18/2004, Additional history exists [facility]-Zoster Vaccines (1 of 2) 2053 08/15/2015, 04/07/2004 [facility]-Hepatitis B Vaccines Completed 004, 2003, 2003 [facility]-HIB Vaccines Completed 05/30/2007, 08/2004, 2003, Additional history exists [facility]-IPV Vaccines Completed 05/30/2007, , 2003, Additional history exists [facility]-Varicella Vaccines Completed 08/15/2015, 2003 HPV Vaccines Completed 01/04/2016, 07/28, 07/12/2014 [facility]-Hepatitis A Vaccines Completed 07/30/2018, 10/2017 [facility]-Hepatitis C Screening Completed 04/04/2022 [facility]-HIV Screening Completed 12/08/2024, 04/04/2022 [facility]-Pneumococcal Vaccine: Pediatrics (0 to 5 Years) and At-Risk Patients (6 to 49 Years) Aged Out No longer eligible based on patient's age to complete this topic [facility]-Rotavirus Vaccines Aged Out No lo nger eligible based on patient's age to complete this topic Procedures Procedure Name Priority Date/Time Associated Diagnosis Comments ED HIV 1/2 ANTIBODY/ANTIGEN SCREEN WITH REFLEX TO HIV I/II DIFFERENTIATION STAT 12/08/2024 11:45 PM EST HEPATITIS C ANTIBODY - ED W/REFLEX TO HCV QUANT PCR STAT 04/04/2022 1:50 PM EDT from Last 3 Months or Most Recently Relevant to Health Maintenance Results * ED HIV 1/2 Antibody/Antigen Screen w/Reflex to HIV 1/2 Differentiation (12/08/2024 11:45 PM EST) Pathologist [facility] HIV 1 & 2 Antibody/Antigen Screen Non Reactive Non Reactive 12/09/2024 12:[address] [facility] Comment:Screening for HIV 1 & 2 antibodies, and P24 antigen is NONREACTIVE. No confirmatory testing is required. Blood Venous blood specimen / Unknown Venipuncture / Unknown 12/08/2024 11:45 PM EST 12/08/2024 11:57 PM EST us Tank Sam MD LAB BLOOD ORDERABLES Final Resu lt Performing Organization Address City/[facility] Co de Phone Number [facility] [address] [place] [address] * (ABNORMAL) Hepatitis C Antibody - ED (04/04/2022 1:50 PM EDT) Pathologist [facility] Hepatitis C Antibody Positive( A) Negative 04/04/2022 3:36 PM EDT [facility] Comment:This specimen is vilma ng sent for confirmation by RT-PCR. Blood Venous blood specimen / Unknown Venipuncture / Unknown 04/04/2022 1:50 PM EDT 04/04/2022 2:13 PM EDT us Giuseppe Cuello MD LAB BLOOD ORDERABLES Final Re sult Performing Organization Address City/[facility]/ZIP Co de Phone Number [facility] [address] [place] [address] from Last 3 Months or Most Recently Relevant to Health Maintenance Insurance MEDICARE Advance Directives * Full Code (Latest Code Status on File) Date Activated Date Inactivated Comments 04/04/2022 5:47 PM 04/06/2022 12:50 PM Question Answer Comments Patient has decision-making capacity? Yes Care Teams Pain Medicine Physician Relationship Specialty Start Date End Date Mily Hitchcock DO [address] [place] [id number] PCP - General 03/10/21
== END 2025-07-01 23:59 ==
LOC: LAB.DROPOF 07-05 09:11
PROVIDERS: PCP Family Medicine; Visit Provider Family Medicine
DX: E66.9 Obesity, unspecified (principal); R73.03 Prediabetes
CPT/HCPCS: 80053; 80061; 83036; 84443; 85025